=== PATIENT | male | born 1965 | race Caucasian/White ===

== ENCOUNTER 2017-10-24 00:15 | Observation (INO) | payer OTHER ==
[2017-10-24] VITALS (10 sets, daily range): BP systolic 111–195; BP diastolic 86–120; PULSE 72–113; RESP 16–24; TEMP 97.7–98.7; O2SAT 94–97
[~2017-10-24] VITALS: Ht 175.3 cm; Wt 98.0 kg
[2017-10-24] MEDS ORDERED: METOPROLOL TARTRATE 25 MG TAB PO ONE ×2 (00:45→18:00)
--- NOTE | 2017-10-24 00:58 | RADRPT ---
EXAM DATE: 10/24/2017 12:51 AM EDT AGE/SEX: 52 years / Male INDICATIONS: Cough and shortness of breath. CLINICAL DATA: This is the patient's initial encounter. Patient reports that signs and symptoms have been present for 1 day and indicates a pain score of 4/10. MEDICAL/SURGICAL HISTORY: None. None. COMPARISON: No prior exams available for comparison. FINDINGS: Mild basilar atelectasis. Heart size enlarged with pacer leads overlying right atrium and right ventr icle. Previous sternotomy. No pneumothorax. CONCLUSION: Minimal basilar atelectasis. Pacer leads overlying right atrium and right ventricle. Electronically signed by: Twan Rogers MD 10/24/2017 12:57 AM EDT
[2017-10-24 01:05] LABS: BASOPHIL # 0.1 TH/MM3 (0-0.2); BASOPHIL % 1.5 % (0.0-2.0); EOSINOPHIL # 0.4 TH/MM3 (0-0.4); EOSINOPHIL % 4.2 % (0.0-4.0); HEMATOCRIT 42.6 % (39.0-51.0); HEMOGLOBIN 15.5 GM/DL (13.0-17.0); LYMPH % 25.3 % (9.0-44.0); LYMPHOCYTE # 2.5 TH/MM3 (1.0-4.8); MEAN CELL VOLUME 93.4 FL (80.0-100.0); MEAN CORPUSCULAR HEMOGLOBIN 34.1 PG (27.0-34.0); MEAN PLATELET VOLUME 8.2 FL (7.0-11.0); MONO % 8.8 % (0.0-8.0); MONOCYTE # 0.9 TH/MM3 (0-0.9); NEUT % 60.2 % (16.0-70.0); PLATELET COUNT 350 TH/MM3 (150-450); RED BLOOD COUNT 4.56 MIL/MM3 (4.50-5.90); RED CELL DISTRIBUTION WIDTH 13.8 % (11.6-17.2); WHITE BLOOD COUNT 9.9 TH/MM3 (4.0-11.0)
[2017-10-24 01:09] LABS: MEAN CORPUSCULAR HGB CONC 36.4 % (32.0-36.0)
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
[2017-10-24] MEDS ORDERED: MORPHINE SULFATE 4 MG/ML INJ IV PUSH ONE (01:15)
[2017-10-24] MEDS ORDERED: NITROGLYCERIN 2% OINT 1 GM PACKET TOPICAL ONE (01:15)
[2017-10-24] MEDS ORDERED: SODIUM CHLORID 0.9% 500 ML INJ 500 ML IV ONE (01:15)
[2017-10-24 01:16] LABS: ALBUMIN 4.3 GM/DL (3.4-5.0); ALT (GPT) 30 U/L (12-78); AST (GOT) 17 U/L (15-37); BICARBONATE 24.5 MEQ/L (21.0-32.0); BLOOD UREA NITROGEN 6 MG/DL (7-18); CALCIUM 8.4 MG/DL (8.5-10.1); CHLORIDE 107 MEQ/L (98-107); CREATININE 1.28 MG/DL (0.60-1.30); GLOMERULAR FILTRATION RATE 59 ML/MIN (>89); GLUCOSE,RANDOM 111 MG/DL (74-106); SODIUM (NA) 143 MEQ/L (136-145)
[2017-10-24 01:20] LABS: ALKALINE PHOSPHATASE 84 U/L (45-117); TOTAL BILIRUBIN ADULT 0.6 MG/DL (0.2-1.0); TROPONIN I 0.06 NG/ML (0.02-0.05)
[2017-10-24] MEDS: SODIUM CHLOR 0.9% 1000 ML INJ 1,000 ML IV SCH ×3 (02:22→22:56)
[2017-10-24] MEDS ORDERED: IOHEXOL 350 MG/ML 50 ML BTL (for Cath Lab) OTHER ONE (02:25)
[2017-10-24] MEDS ORDERED: IOHEXOL 350 MG/ML 100 ML BTL (for Cath Lab) OTHER ONE (02:25)
[2017-10-24] MEDS ORDERED: SODIUM CHLORIDE 0.9% FLUSH 10 ML FLUSH IV FLUSH PRN (02:30)
--- NOTE | 2017-10-24 03:36 | HHI.HP ---
[facility] Noé Shah DO Admission Diagnosis cp Diagnoses: Travel History International Travel<30 Days: No Contact w/Intl Traveler <30 Da: No Traveled to Known Affected Are: No History of Present Illness 52-year-old male with a past medical history significant for coronary artery disease, hypertension, hyperlipidemia and bipolar/schizophrenia presents to the emergency department for the evaluation of chest pain. The patient states that "his heart hurts." He complains of left-sided chest pain that he describes as a squeezing. He states the pain started sometime last night although cannot specify exactly when. He reports drinking alcohol last night. He endorses accompanying shortness of breath. Denies abdominal pain. No nausea/vomiting/ diarrhea. No lateralizing signs/symptoms. No fevers/chills. Review of Systems Except as stated in HPI: all other systems reviewed are Neg Past Family Social History Past Medical History Coronary artery disease Hypertension Hyperlipidemia Bipolar disorder Schizophrenia Past Surgical History Multiple cardiac catheterizations with stent placement CABG 3 Pacemaker placement Appendectomy Reported Medications Reported Meds & Active Scripts Active Active Prescriptions or Reported Medications Unobtainable Allergies: Coded Allergies: No Known Allergies (Verified Allergy, Unknown, 10/24/17) Family History Mother with coronary artery disease Social History Smokes approximately 4-5 cigarettes daily. Occasional alcohol. Denies illicit drugs. Physical Exam Vital Signs Vital Signs Date Time Temp Pulse Resp B/P (MAP) Pulse Ox O2 Delivery O2 Flow Rate FiO2 10/24/17 00:29 113 18 129/93 (105) 96 Room Air 10/24/17 00:29 96 Room Air 10/24/17 00:24 109 22 95 Physical Exam GENERAL: Obese, male lying in bed SKIN: No rashes, ecchymoses or lesions. Cool and dry. HEAD: Atraumatic. Normocephalic. No temporal or scalp tenderness. EYES: Pupils equal round and reactive. Extraocular motions intact. No scleral icterus. No injection or drainage. ENT: Nose without bleeding, purulent drainage or septal hematoma. Throat without erythema, tonsillar hypertrophy or exudate. Uvula midline. Airway patent. NECK: Trachea midline. No JVD or lymphadenopathy. Supple, nontender, no meningeal signs. CARDIOVASCULAR: Regular rate and rhythm without murmurs, gallops, or rubs. RESPIRATORY: Clear to auscultation. Breath sounds equal bilaterally. No wheezes , rales, or rhonchi. GASTROINTESTINAL: Abdomen soft, non-tender, nondistended. No hepato-splenomegaly , or palpable masses. No guarding. MUSCULOSKELETAL: Extremities without clubbing, cyanosis, or edema. No joint tenderness, effusion, or edema noted. No calf tenderness. NEUROLOGICAL: Awake and alert. Cranial nerves II through XII intact. Motor and sensory grossly within normal limits. Normal speech. Laboratory Laboratory Tests Test 10/24/17 00:45 White Blood Count 9.9 Red Blood Count 4.56 Hemoglobin 15.5 Hematocrit 42.6 Mean Corpuscular Volume 93.4 Mean Corpuscular Hemoglobin 34.1 Mean Corpuscular Hemoglobin Concent 36.4 Red Cell Distribution Width 13.8 Platelet Count 350 Mean Platelet Volume 8.2 Neutrophils (%) (Auto) 60.2 Lymphocytes (%) (Auto) 25.3 Monocytes (%) (Auto) 8.8 Eosinophils (%) (Auto) 4.2 Basophils (%) (Auto) 1.5 Neutrophils # (Auto) 6.0 Lymphocytes # (Auto) 2.5 Monocytes # (Auto) 0.9 Eosinophils # (Auto) 0.4 Basophils # (Auto) 0.1 CBC Comment AUTO DIFF Differential Comment AUTO DIFF CONFIRMED Platelet Estimate NORMAL Platelet Morphology Comment NORMAL Red Cell Morphology Comment NORMAL Blood Urea Nitrogen 6 Creatinine 1.28 Random Glucose 111 Total Protein 8.0 Albumin 4.3 Calcium Level 8.4 Alkaline Phosphatase 84 Aspartate Amino Transf (AST/SGOT) 17 Alanine Aminotransferase (ALT/SGPT) 30 Total Bilirubin 0.6 Sodium Level 143 Potassium Level 3.7 Chloride Level 107 Carbon Dioxide Level 24.5 Anion Gap 12 Estimat Glomerular Filtration Rate 59 Troponin I 0.06 Lipase 128 Result Diagram: 10/24/174410/24/1744 Caprini VTE Risk Assessment Caprini VTE Risk Assessment: No/Low Risk (score <= 1) Caprini Risk Assessment Model Point Value = 1 Point Value = 2 Point Value = 3 Point Value = 5 Age 41-60 Minor surgery BMI > 25 kg/m2 Swollen legs Varicose veins or History of unexplained or recurrent spontaneous Oral contraceptives or hormone replacement Sepsis (< 1 month) Serious lung disease, including pneumonia (< 1 month) Abnormal pulmonary function Acute myocardial infarction Congestive heart failure (< 1 month) History of inflammatory bowel disease Medical patient at bed rest Age 61-74 Arthroscopic surgery Major open surgery (> 45 min) Laparoscopic surgery (> 45 min) Malignancy Confined to bed (> 72 hours) Immobilizing plaster cast Central venous access Age >= 75 History of VTE Family history of VTE Factor V Leiden Prothrombin [id number] Lupus anticoagulant Anticardiolipin antibodies Elevated serum homocysteine Heparin-induced thrombocytopenia Other congenital or acquired thrombophilia Stroke (< 1 month) Elective arthroplasty Hip, pelvis, or leg fracture Acute spinal cord injury (< 1 month) Prophylaxis Regimen Total Risk Factor Score Risk Level Prophylaxis Regimen 0-1 Low Early ambulation 2 Moderate Order ONE of the following: *Sequential Compression Device (SCD) *Heparin 5000 units SQ BID 3-4 Higher Order ONE of the following medications: *Heparin 5000 units SQ TID *Enoxaparin/Lovenox 40 mg SQ daily (WT < 150 kg, CrCl > 30 mL/min) *Enoxaparin/Lovenox 30 mg SQ daily (WT < 150 kg, CrCl > 10-29 mL/min) *Enoxaparin/Lovenox 30 mg SQ BID (WT < 150 kg, CrCl > 30 mL/min) AND/OR *Sequential Compression Device (SCD) 5 or more Highest Order ONE of the following medications: *Heparin 5000 units SQ TID (Preferred with Epidurals) *Enoxaparin/Lovenox 40 mg SQ daily (WT < 150 kg, CrCl > 30 mL/min) *Enoxaparin/Lovenox 30 mg SQ daily (WT < 150 kg, CrCl > 10-29 mL/min) *Enoxaparin/Lovenox 30 mg SQ BID (WT < 150 kg, CrCl > 30 mL/min) AND *Sequential Compression Device (SCD) Assessment and Plan Assessment and Plan Assessment/plan: 1. Chest pain Initial troponin 0.[address] segment elevation or depression, personally reviewed ACS rule out pending; serial troponins/EKGs Nitro Morphine Aspirin 2. CAD/hypertension/hyperlipidemia Continue home medications once reconciled 3. Bipolar disorder/schizophrenia Continue home medications FEN N.p.o. Electrolytes: Monitor and replete as needed NS at 1 25 cc/hour Naomi Cleary MD Oct 24, 2017 03:36
[2017-10-24] MEDS: HEPARIN SODIUM - SQ 10,000 UNITS/ML VIAL SQ SCH ×2 (05:32→10:30)
[2017-10-24] MEDS: MORPHINE SULFATE 4 MG/ML INJ IV PUSH PRN ×4 (05:33→18:34)
[2017-10-24 08:01] LABS: TROPONIN I 0.06 NG/ML (0.02-0.05)
[2017-10-24] MEDS ORDERED: ASPIRIN 325 MG TAB PO SCH (09:00)
[2017-10-24] MEDS ORDERED: HEPARIN-D5W 25,000 U/250 ML 250 ML IV PRN (09:15)
[2017-10-24] MEDS: SODIUM CHLORIDE 0.9% FLUSH 10 ML FLUSH IV FLUSH SCH ×2 (09:22→19:46)
[2017-10-24] MEDS: ENOXAPARIN SODIUM 80 MG/0.8 ML SYRINGE SQ SCH ×2 (09:23→18:15)
[2017-10-24 10:27] LABS: HEMATOCRIT 43.8 % (39.0-51.0); HEMOGLOBIN 15.4 GM/DL (13.0-17.0); MEAN CELL VOLUME 94.6 FL (80.0-100.0); MEAN CORPUSCULAR HEMOGLOBIN 33.4 PG (27.0-34.0); MEAN CORPUSCULAR HGB CONC 35.3 % (32.0-36.0); PLATELET COUNT 334 TH/MM3 (150-450); RED BLOOD COUNT 4.63 MIL/MM3 (4.50-5.90); RED CELL DISTRIBUTION WIDTH 13.9 % (11.6-17.2); WHITE BLOOD COUNT 9.4 TH/MM3 (4.0-11.0)
[2017-10-24 10:38] LABS: INTERNATIONAL NORMALIZED RATIO 1.1 RATIO; PROTHROMBIN TIME - PATIENT 10.9 SEC (9.8-11.6)
--- NOTE | 2017-10-24 13:10 | MB ---
cc: Devaughn Arevalo MD DATE: 10/24/2017 INDICATION: Unstable angina. HISTORY OF PRESENT ILLNESS: This is a 52-year-old gentleman who has past medical history of known coronary artery disease with prior bypass surgery back in 2009. In addition, recent percutaneous coronary intervention just 2 months ago. Also, has a history of hypertension, hyperlipidemia. The patient has established with Dr. Ogden in the outpatient setting. The patient has symptoms of new onset chest pain. He describes it as a substernal chest pain, squeezing in the middle of his chest, radiating towards the left side, associated with diaphoresis and nausea and vomiting. He also reports shortness of breath. He states that the symptoms are worse with activity, although they have occurred at rest. He is currently chest pain free. Initial troponin was intermediate range. Electrocardiogram showed some nonspecific ST abnormalities inferiorly. The patient is concerned about recurrent symptoms, which are similar to his prior angina consistent with his percutaneous intervention and bypass surgery. PAST MEDICAL HISTORY: Coronary artery disease with bypass and prior percutaneous intervention, hypertension, hyperlipidemia, bipolar disorder, schizophrenia. He has coronary bypass surgery x3. He also has permanent pacemaker placement, appendectomy. FAMILY HISTORY: Denies family history of early coronary artery disease or sudden cardiac . SOCIAL HISTORY: Reports tobacco abuse, smokes about 4-5 cigarettes a day. Occasional alcohol use. Denies any drug use. ALLERGIES: NO KNOWN DRUG ALLERGIES. REVIEW OF SYSTEMS: A 12-point review of systems was performed and negative unless otherwise noted in the history of present illness. PHYSICAL EXAMINATION: VITAL SIGNS: Pulse 81, blood pressure is 159/96 mmHg. GENERAL: Alert and oriented x3, in no acute distress. HEENT: Shows pupils are reactive to light and accommodation. Extraocular movements intact. NECK: No elevation of jugular venous distention. No thyromegaly. No lymphadenopathy, no carotid bruits. LUNGS: Clear to auscultation bilaterally. CARDIOVASCULAR: Reveals a regular rate and rhythm without murmurs, rubs or gallops. ABDOMEN: Nontender, nondistended with good bowel sounds. No hepatosplenomegaly. EXTREMITIES: Show no clubbing, cyanosis or edema. Good peripheral pulses. NEUROLOGIC: Cranial nerves intact. Motor and sensory grossly intact. LABORATORY DATA: WBC 9.4, hemoglobin 15.4, platelet count is 334. INR is 1.1. Sodium 143, potassium 3.7, BUN 6, creatinine is 1.28. Troponin 0.06 x2. Total creatinine kinase is elevated at 410. Electrocardiogram shows nonspecific ST abnormality inferiorly in leads II, III, aVF. ASSESSMENT: 1. Unstable angina. 2. History of coronary artery disease with prior percutaneous intervention and coronary artery bypass surgery, hypertension, hyperlipidemia. PLAN: The patient's symptoms are suggestive and recurrent similar to his prior episodes of angina. The patient also has intermediate troponin and electrocardiogram with subtle ischemic changes. We will get a 2-D echocardiogram. I am going to initiate heparin drip, in addition to guideline directed medical therapy with nitrate, aspirin, beta norma. We will make him n.p.o. after midnight. Anticipate cardiac catheterization from a right common femoral approach tomorrow morning. Devaughn Arevalo MD NIVIA/TL , 12:40 PM , 01:08 PM
[2017-10-24 13:45] LABS: TROPONIN I 0.06 NG/ML (0.02-0.05)
[2017-10-24] MEDS ORDERED: PARO30TA2 PO (14:47)
[2017-10-24] MEDS ORDERED: SPIR25TA PO (14:47)
[2017-10-24] MEDS ORDERED: LOSA100T PO (14:47)
[2017-10-24] MEDS ORDERED: CLOP75TA PO (14:47)
[2017-10-24] MEDS ORDERED: NITR.3 SL (14:47)
[2017-10-24] MEDS ORDERED: QUET-88 PO (14:47)
[2017-10-24] MEDS ORDERED: TRAZ100T10 PO (14:47)
[2017-10-24] MEDS ORDERED: RANI150T PO (14:47)
[2017-10-24] MEDS ORDERED: ATOR40TA16 PO (14:47)
[2017-10-24] MEDS ORDERED: BUPR150T3 PO (14:47)
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
[2017-10-24] MEDS: LOSARTAN 50 MG TAB PO SCH (17:36)
--- NOTE | 2017-10-24 18:25 | EKG ---
Date Performed: 10/23/2017 Time Performed: 23:28:41 PTAGE: 52 years EKG: SINUS TACHYCARDIA WITH FIRST DEGREE AV BLOCK INFERIOR MYOCARDIAL INFARCTION ABNORMAL ECG NO PREVIOUS TRACING DOCTOR: Mihcelle Sotelo Interpretating Date/Time 10/24/2017 18:23:38
--- NOTE | 2017-10-24 18:27 | EKG ---
Date Performed: 10/24/2017 Time Performed: 05:00:28 PTAGE: 52 years EKG: Normal Sinus rhythm Inferior wall infarct- of undeterminate age. Possibly acute. When compared to previous tracing, ther e has been no significant Serial change. ABNORMAL RHYTHM ECG PREVIOUS TRACING : 10/23/2017 23.28 DOCTOR: David Florentino Interpretating Date/Time 10/24/2017 18:25:28
[2017-10-24] MEDS: QUEtiapine FUMARATE 200 MG TAB PO SCH (19:47)
[2017-10-24] MEDS: FAMOTIDINE 20 MG TAB PO SCH (19:47)
[2017-10-24] MEDS: PARoxetine HCL 20 MG TAB PO SCH (19:47)
[2017-10-24] MEDS: METOPROLOL TARTRATE 25 MG TAB PO SCH (19:47)
[2017-10-24] MEDS ORDERED: LACTATED RINGER'S 1000 ML IV PRN (22:30)
[2017-10-24] MEDS ORDERED: POVIDONE IODINE 5% (ANTISEPSIS KIT) 4 APPLICATIONS EACH NARE PRN (22:30)
[2017-10-24] MEDS ORDERED: METOPROLOL TARTRATE 25 MG TAB PO PRN (22:30)
[2017-10-24] MEDS ORDERED: SODIUM CHLORID 0.9% 500 ML IV PRN (22:30)
[2017-10-24] MEDS ORDERED: CHLORHEXIDINE GLUCONATE 2 % 1 PACK (2 CLOTHS) TOPICAL PRN (22:30)
[2017-10-25] VITALS (11 sets, daily range): BP systolic 103–148; BP diastolic 67–98; PULSE 59–81; RESP 16–18; TEMP 97.6–98.2; O2SAT 94–100
[2017-10-25] MEDS: ENOXAPARIN SODIUM 80 MG/0.8 ML SYRINGE SQ SCH (06:15)
--- NOTE | 2017-10-25 07:41 | HHI.PR ---
Subjective Remarks Follow-up on patient with chest pain. Patient seen and examined. Patient is complaining of chest pain that began at 6am. He denies any nausea, vomiting or diaphoresis. He denies any dizziness, lightheadedness or palpitations. He denies any shortness of breath. Objective Vitals Vital Signs Date Time Temp Pulse Resp B/P (MAP) Pulse Ox O2 Delivery O2 Flow Rate FiO2 10/25/17 07:15 97.6 63 18 142/94 (110) 98 10/25/17 03:34 97.7 72 16 128/85 (99) 97 10/24/17 23:00 72 10/24/17 22:54 97.7 79 16 111/86 (94) 96 10/24/17 19:40 98.5 83 16 195/110 (138) 97 10/24/17 17:29 77 10/24/17 17:21 98.7 80 18 191/117 (141) 94 10/24/17 14:28 182/120 (140) Automatic Cuff 10/24/17 14:08 97.7 81 24 164/103 (123) 96 10/24/17 09:17 81 17 159/96 (117) 97 Room Air I/O 10/24/17 10/24/17 10/24/17 10/25/17 10/25/17 10/25/17 07:00 15:00 23:00 07:00 15:00 23:00 Intake Total 500 ml Balance 500 ml Intake IV Total 500 ml # Voids 1 Result Diagram: 10/24/17 1015 10/24/17 0045 Imaging Last Impressions Chest X-Ray 10/24/17 0027 Signed Impressions: CONCLUSION: Minimal basilar atelectasis. Pacer leads overlying right atrium and right ventr icle. Objective Remarks GENERAL: WDWN obese male patient, INAD. Asleep but easily awakens to voice. SKIN: No rashes, ecchymoses or lesions. Cool and dry. HEAD: Atraumatic. Normocephalic. No temporal or scalp tenderness. EYES: Pupils equal round and reactive. Extraocular motions intact. No scleral icterus. No injection or drainage. ENT: Nose without bleeding or purulent drainage. Airway patent. MMM. NECK: Trachea midline. CARDIOVASCULAR: Regular rate and rhythm without murmurs, gallops, or rubs. RESPIRATORY: Clear to auscultation. Breath sounds equal bilaterally. No wheezes , rales, or rhonchi. GASTROINTESTINAL: Abdomen soft, non-tender, nondistended. No guarding. MUSCULOSKELETAL: Extremities without clubbing, cyanosis, or edema. No calf tenderness. NEUROLOGICAL: Awake and alert. Cranial nerves II through XII grossly intact. Motor and sensory grossly within normal limits. Nonfocal. Normal speech. PSYCHIATRIC: Appropriate mood and affect. Normal judgment and insight. Procedures None A/P Assessment and Plan 52-year-old male with a past medical history significant for coronary artery disease, hypertension, hyperlipidemia and bipolar/schizophrenia presents to the emergency department for the evaluation of chest pain. Chest pain Elevated troponin EKG with non specific ST abnormalities Hx of previous CABG 2009 and stent implantations x 12, last one in August of this year in [facility] -Cardiology following, patient is NPO for cardiac catheterization later this morning -Continue on morphine as needed chest pain -Continue to monitor on cardiac telemetry -Continue on therapeutic Lovenox -ASA 81mg and Lipitor 40mg daily -continue on BB Hypertension Dyslipidemia -Continue patient on home dose of losartan 100 mg daily, spironolactone 25 mg daily and Lipitor 40 mg daily -continue on Lopressor started this admission -Clonidine prn with parameters -Continue to monitor BP and adjust treatment accordingly Bipolar disorder/schizophrenia, stable -Continue on home medications DVT prophylaxis -patient is on therapeutic Lovenox Discharge Planning Not ready for discharge. Discharge pending cardiology clearance. Eleanor Dubose Oct 25, 2017 07:41
[2017-10-25] MEDS: SODIUM CHLORIDE 0.9% FLUSH 10 ML FLUSH IV FLUSH SCH ×2 (07:42→20:15)
[2017-10-25] MEDS: METOPROLOL TARTRATE 25 MG TAB PO SCH ×2 (07:43→20:15)
[2017-10-25] MEDS: ATORVASTATIN 40 MG TAB PO SCH (07:43)
[2017-10-25] MEDS: LOSARTAN 50 MG TAB PO SCH (07:43)
[2017-10-25] MEDS: ASPIRIN EC 81 MG TABEC PO SCH (07:43)
[2017-10-25] MEDS: buPROPion HCL 150 MG SUSTAINED RELEASE TAB PO SCH (07:43)
[2017-10-25] MEDS: FAMOTIDINE 20 MG TAB PO SCH ×2 (07:43→20:16)
[2017-10-25] MEDS: QUEtiapine FUMARATE 200 MG TAB PO SCH ×2 (07:44→21:31)
[2017-10-25] MEDS: SPIRONOLACTONE 25 MG TAB PO SCH (07:44)
[2017-10-25] MEDS: MORPHINE SULFATE 4 MG/ML INJ IV PUSH PRN ×3 (07:44→20:18)
[2017-10-25] MEDS ORDERED: HEPARIN-NS/PF INJ 500 ML ONE (08:15)
[2017-10-25] MEDS ORDERED: MIDAZOLAM HCL 2 MG/2 ML VIAL ONE (08:15)
--- NOTE | 2017-10-25 09:29 | CATHPROC ---
MyPermissions HIS Report Study Information Study Number Admission Scheduled Start Study Start [id number] Oct 24 2017 2:24AM 10/25/2017 Oct 25 2017 8:12AM [place] [facility] Cardiac Catheterization Admit Source Facility Department Emergency department [facility] - [employer] [facility] Counselor Physician and Clinical Staff Initial Devaughn Morales Butadiene Converter Helpersuzie Redd RN, Reg Recorder Meera Jade ,RT(R) Scrub Sarah Rivera,LITERACY COACH TECH2 Procedures Performed Procedure Location (Site) Vessel Name Angiogram LV LV Ventricle Coronary Angiograms LCA Left Coronary Coronary Angiograms RCA Right Coronary Coronary Angiograms SVG-DIAG Left Coronary Coronary Angiograms WOODRUFF WOODRUFF L Heart Cath Wire insertion Fem Art (right) Femoral Art Equipment Time Pit Shoveler Description Size Mfg Part Number Used/Scraped TRANSDUCER, TRUWAVE [id number] 08:13 Frilp MALDONADO * Used W/STOCKCOCK *[id number] 09:11 [employer] VASCADE, FR5 CLOSURE SYSTEM FR 5 Used *[id number] [id number] *[id number] [id number] *[id number] [id number] *[id number] 08:13 [employer] BLANKET,WARM AIR CCL * Used *[id number] 08:13 [employer] PACK, CCL CUSTOM * Used *[id number] 08:13 [employer] PACER PEN, SKIN DUAL W/ RULER * Used *[id number] PIG ANG 145 DXTERITY [id number] 09:03 [employer] FR 5 Used CATHETER *[id number] 08:13 [employer] MEDICAL WIRE, 3MMJ .035 180CM 180CM Used *[id number] 08:53 [employer] MEDICAL WIRE, EXCHANGE 260CM 3MMJ 260CM Used *[id number] 08:13 NAMIC MANIFOLD, 4 PORT * Used *[id number] TUBING, PRESSURE INJECTION [id number] 09:04 NAMIC 72" Used 72" *[id number] 09:07 [employer] OMNIPAQUE, 350 MG, 150ML 150ML [id number] Used 08:13 [employer] OMNIPAQUE, 350 MG, 150ML 150ML [id number] Used 09:06 [employer] OMNIPAQUE, 350 MG, 50ML 50ML [id number] Used [id number] 08:13 TERUMO MEDICAL SHEATH, FR5 TERUMO (10CM) FR 5 Used *[id number] Equipment Model, Serial, Lot Number and Expiration Data Description Model Number Serial Number Lot Number Expiration Date KIRBY VELARDE 145 DXTERITY CATHETER [id number] 06-26-2019 History: Current Medications Medication Dosage/Unit Route Frequency Last Date/Time Taken Statins (any) Beta John ASA History: Allergies Allergy Reaction No Known Allergies History: Risk Factors Family History of Hypertension Dyslipidemia Previous OH Previous Heart Failure Premature CAD Yes Yes Yes Yes Yes Prior Valve Prior PCI Prior CABG Prior CABGDate Surgery No Yes Yes 05/20/2009 Cerebrovascular Peripheral Artery Chronic Lung On Dialysis Diabetes Disease Disease Disease No No No No No History: Symptoms/Diagnosis Selection Items Chest pain History: CV Disease Selection Items OH History: Stress Tests Stress or Imaging Studies Performed No History: Other Disease Selection Items HTN History: Other Current Smoker Packs a Day Years Used Pack Years Yes 1 34 34 Labs Hgb (g/dl) Hct (%) WBC (l/cumm) Platelets (thousands) 11.60-17.00 35.00-51.00 4.00-11.00 150.00-450.00 15.4 43.8 9.4 334 Glucose (mg/dl) BUN (mg/dl) Creatinine (mg/dl) BUN:Creatinine (1:x) 74.00-106.00 7.00-18.00 0.50-1.30 10.00-20.00 111 6 1.2 5 Na (meq/l) K (meq/l) 136.00-145.00 3.50-5.10 143 3.7 INR (PTT:PT) 0.90-1.10 1.1 Troponin I (ng/ml) CPK (u/l) CPK-MB (ng/ML) 0.02-0.05 26.00-308.00 0.50-3.60 0.06 374 3.2 Medication Medication Total Dose (Bolus/Oral) Medication Total Dosage/Unit 1% XYLOCAINE 15 mL FENTANYL 50 mcg VERSED 2 mg Medications (Bolus/Oral) Medication Time Given Dosage/Unit Administered By Reason VERSED 10/25/2017 8:45:16 AM 2 mg Reg Redd RN 2 mg VERSED given in lab by Reg Redd RN in Left Hand via Peripheral IV. Ordered by Devaughn Arevalo . FENTANYL 10/25/2017 8:46:36 AM 50 mcg Reg Redd RN 50 mcg FENTANYL given in lab by Reg Redd RN in Left Hand via Peripheral IV. Ordered by Jay Arevalo 1% XYLOCAINE 10/25/2017 8:51:41 AM 15 mL Devaughn Arevalo 15 mL 1% XYLOCAINE given in lab by Devaughn Arevalo in Right Groin via Subcutaneous. Ordered by Devaughn Arevalo. Medication (Drip) Medication Time Given Dosage/Unit Concentration/Unit Diluent (ml) Solution IV Solutions 10/25/2017 8:13:23 AM 50 mL (IV) NaCl .9 Patient arrived on IV Solutions in Left Hand via Peripheral IV. Pump/Drip Flow using NaCl .9. Initial Case Assessment Cardiovascular HR Rhythm NIBP 80 sr 151/100 Edema Present Skin color Skin None Normal Warm Dry Circulatory - Right Pulses Dorsalis Pedis Femoral 2 2 Scale (0,1,2,3,4,d) Circulatory - Left Pulses Dorsalis Pedis Femoral 2 2 Scale (0,1,2,3,4,d) Circulatory - Lower Extremities Color Lower Right Color Lower Left Normal Normal Neurological State Oriented to time-place- Alert Moves all extremities person Respiration - General Respiration Rate SpO2 (%) (B/min) 10 99 Final Case Assessment Cardiovascular HR Rhythm NIBP 80 sr 151/100 Edema Present Skin color Skin None Normal Warm Dry Circulatory - Right Pulses Dorsalis Pedis Femoral 2 2 Scale (0,1,2,3,4,d) Circulatory - Left Pulses Dorsalis Pedis Femoral 2 2 Scale (0,1,2,3,4,d) Circulatory - Lower Extremities Color Lower Right Color Lower Left Normal Normal Neurological State Oriented to time-place- Alert Moves all extremities person Respiration - General Respiration Rate SpO2 (%) (B/min) 10 99 Chronological Log Time Study Chronological Log 8:10:01 Patient arrived via Bed. 8:10:06 Patient Name, D.O.B, / Armband Verified By R.N. 8:12:10 Consent signed by the physician and the patient and verified by the [employer] [facility] staff. 8:12:11 Pre-op and post- op instructions given; patient acknowledges understanding of instructions. 8:12:12 Verbal Stimulation=2 Physical Stimulation=2 Airway=2 Respiration=2 TOTAL=8. (0=absent, 1=li mited, 2=present) 8:13:09 Patient has been NPO for More than 6Hrs. 8:13:09 Skin Breakdown- none per patient 8:13:11 Patient Warmer Placed on the Table. 8:13:17 Gill Prominences Protected 8:13:23 A # 20 IV was noted in the Hand (left). Grade = 0 8:13:23 Patient arrived on IV Solutions in Left Hand via Peripheral IV. Pump/Drip Flow using NaCl . 9. Assessment: Initial Case, HR=80 BPM, Rhythm=sr, UCVM=824/100 mmhg, Edema=None, Color=Normal, Ski n = Warm, Dry Right Pulses: [place] Ped=2, Femoral=2 Left Pulses: [place] Ped=2, Femoral=2 8:13:24 Lower Right Extremities: Color=Normal Lower Left Extremities: Color=Normal Neurological: State=Alert, Ox3, KITCHEN Respiration: Resp=10 B/min, SpO2=99 % 8:13:24 History and physical on the chart or being dictated. Vitals capture started with the following parameters, Patient=Adult, Interval=5 min, Initial Pre rjmht=359 mmHg, 8:13:45 Deflation Rate=5 mmHg, Cuff placed on Left Arm 8:14:23 HR=60 bpm, BRFI=153/100 mmhg, PqE1=579.0 %, Resp=7 B/min, Pain=0, Reji=10, Lara=2 8:17:31 Bilateral groins prepped with 2% chlorhexidine, and draped after a 3 minute waiting time. 8:19:22 HR=67 bpm, PZIW=434/102 mmhg, SpO2=99.0 %, Resp=9 B/min, Pain=0, Reji=10, Lara=2 8:24:23 HR=70 bpm, JLJW=434/106 mmhg, SpO2=97.0 %, Resp=10 B/min, Pain=0, Reji=10, Lara=2 8:25:08 Pressure channel 1 zeroed. 8:25:16 paged 8:29:22 Reference ECG taken 8:29:26 HR=64 bpm, RVSK=093/104 mmhg, SpO2=97.0 %, Resp=8 B/min, Pain=0, Reji=10, Lara=2 8:34:25 HR=61 bpm, APPQ=430/95 mmhg, SpO2=99.0 %, Resp=7 B/min, Pain=0, Reji=10, Lara=2 8:35:36 MD responded 8:39:22 HR=59 bpm, CHZT=530/89 mmhg, SpO2=98.0 %, Resp=12 B/min, Pain=0, Reji=10, Lara=2 8:44:23 HR=60 bpm, UJNF=254/102 mmhg, SpO2=98.0 %, Resp=4 B/min 8:45:16 2 mg VERSED given in lab by Reg Redd RN in Left Hand via Peripheral IV. Ordered by Devaughn Arevalo. 8:45:19 MD arrived. 8:46:36 50 mcg FENTANYL given in lab by Reg Redd RN in Left Hand via Peripheral IV. Ordered by Devaughn Fisher. 8:50:05 HR=60 bpm, WKXM=217/92 mmhg, SpO2=94.0 %, Resp=10 B/min, Pain=0, Reji=10, Lara=2 Time Out. Correct patient, correct procedure, correct physician, labs, allergies, and equipment verified with recyclable materials sorter 8:51:23 team present. Fire risk assesment completed (see hard stop sheet for coding). Time Out Concu rred by MD and individual staff in procedure. 8:51:41 15 mL 1% XYLOCAINE given in lab by Devaughn Arevalo in Right Groin via Subcutaneous. Ordered b y Devaughn Arevalo. 8:52:00 Case Start 8:52:43 Access site was Right Femoral Artery. 8:53:03 A wire was inserted via Fem Art (right). 8:53:07 A SHEATH, FR5 TERUMO (10CM) FR 5 was advanced into the Fem Art (right) using the Percutaneou s technique. A JR 4.0 INFINITI CATHETER FR 5 was advanced over a wire. OMNIPAQUE, 350 MG, 150ML 150ML was use d for 8:54:10 injections. 8:55:00 HR=65 bpm, OODR=819/116 mmhg, SpO2=84.0 %, Resp=8 B/min, Pain=0, Reji=10, Lara=2 8:55:20 The RCA was injected and visualized at various angles. OMNIPAQUE, 350 MG, 150ML 150ML used. Recorded Pressure: Ao, HR=82, Condition=Condition 1 8:55:28 (Aorta) Ao 143/90/112 8:56:04 The SVG-DIAG was injected and visualized at various angles. OMNIPAQUE, 350 MG, 150ML 150ML u sed. 8:59:26 HR=87 bpm, VFRY=273/85 mmhg, SpO2=97.0 %, Resp=16 B/min, Pain=0, Reji=10, Lara=2 After removing the current catheter a STEPHEN INFINITI CATHETER FR 5 was advanced over a WIRE, EXCHA NGE 260CM 8:59:30 3MMJ 260CM. 9:00:23 The WOODRUFF was injected and visualized at various angles. OMNIPAQUE, 350 MG, 150ML 150ML used. 9:00:51 Catheter was removed A JL 4.0 INFINITI CATHETER FR 5 was advanced over a wire. OMNIPAQUE, 350 MG, 150ML 150ML was u sed for 9:01:12 injections. 9:02:11 The LCA was injected and visualized at various angles. OMNIPAQUE, 350 MG, 150ML 150ML use d. After removing the current catheter a PIG ANG 145 DXTERITY CATHETER FR 5 was advanced over a W CARIN, EXCHANGE 9:02:58 260CM 3MMJ 260CM. Recorded Pressure: LV, HR=79, Condition=Condition 1 9:04:40 (Left Ventricle) LV 145/6/12 9:05:00 HR=84 bpm, XSCQ=080/92 mmhg, SpO2=95.0 %, Resp=13 B/min, Pain=0, Reji=10, Lara=2 9:05:51 The LV was injected at 10 cc/sec for a total of 20. OMNIPAQUE, 350 MG, 50ML 50ML used. 9:08:24 Catheter was removed 9:09:26 HR=62 bpm, SUYB=160/87 mmhg, SpO2=98.0 %, Resp=12 B/min, Pain=0, Reji=10, Lara=2 9:09:42 An injection in the Fem Art (right) was made through the SHEATH, FR5 TERUMO (10CM) FR 5. 9:11:56 VASCADE, FR5 CLOSURE SYSTEM FR 5 placement in the Fem Art (right) 9:12:08 Case End (Physician broke scrub) Assessment: Final Case, HR=80 BPM, Rhythm=sr, MMLQ=106/100 mmhg, Edema=None, Color=Normal, Ski n = Warm, Dry Right Pulses: [place] Ped=2, Femoral=2 Left Pulses: [place] Ped=2, Femoral=2 9:12:14 Lower Right Extremities: Color=Normal Lower Left Extremities: Color=Normal Neurological: State=Alert, Ox3, KITCHEN Respiration: Resp=10 B/min, SpO2=99 % 9:12:20 Catheter(s) removed without difficulty 9:12:25 No case complications noted. 9:12:26 Cine recording checked. 9:12:28 Bedside Report will be given. 9:12:32 A Left Heart Cath was performed. 9:14:31 HR=75 bpm, FARR=570/85 mmhg, SpO2=99.0 %, Resp=12 B/min, Pain=0, Reji=10, Lara=2 9:19:28 TIRJ=564/90 mmhg, SpO2=95.0 %, Pain=0, Reji=10, Lara=2 9:21:26 Vitals capture stopped. 9:24:19 Patient moved to [facility] End Study - Contrast Media Used In Study Contrast Total Opened (mL) Total Used (mL) Total Wasted (mL) Omnipaque 110 110 0 End Study - Maximum Contrast Load Max Contrast Load (mL) 408.3 End Study - Radiation Exposure Fluoro Time (minutes) 4.1 End Study - Sheaths Sheaths Pulled By Sheath Hold Time (min) Sarah Rivera End Study - Patient Disposition Complications Transferred To Interventional Outcome No Telemetry Bed No attempt made
[2017-10-25] MEDS ORDERED: RANOLAZINE 500 MG EXTENDED RELEASE TAB PO SCH (09:30)
[2017-10-25] MEDS ORDERED: ISOSORBIDE MONONITRATE 60 MG CR TAB (IMDUR) PO SCH (09:30)
--- NOTE | 2017-10-25 10:25 | MA ---
cc: Devaughn Arevalo MD DATE: 10/25/2017 DATE OF PROCEDURE: 10/25/2012. INDICATION: ST elevation myocardial infarction. PROCEDURES PERFORMED: 1. Fluoroscopy with interpretation. 2. Coronary angiography. 3. Coronary artery bypass graft angiography. 4. Left heart catheterization. 5. Left ventriculography. 6. Ascending aortography. METHOD: Risks, benefits, and alternatives were discussed with the patient. The patient understood and consented to procedure. The patient was taken to the cardiac catheterization lab, placed on the catheterization table. The right groin prepped and draped in sterile fashion. The right groin was anesthetized with 2% lidocaine. Right common femoral artery was cannulated and a 5-Cameroonian, 11 cm sheath was placed without difficulty. LEFT HEART CATHETERIZATION: Intraventricular hemodynamics measured 145/6 mmHg with a left ventricular end-diastolic pressure of 12 mmHg. There is no aortic stenosis by transaortic valvular pullback gradient. LEFT VENTRICULOGRAPHY: Left ventriculography was performed in a right anterior oblique view using a mL contrast injection, good opacification. Left ventricular ejection fraction is estimated visually at 30%. There is severe inferior wall hypokinesis extending out to the inferoapex. CORONARY ANGIOGRAPHY: 1. Left main coronary has mild luminal irregularities and tapers distally. 2. Left anterior descending coronary has 95% stenosis in the proximal segment. In the mid segment at the bifurcation of the small diagonal branch, there are stents present which appear to be occluded. There is also diagonal branch that has stents present, which is subtotally occluded, small caliber size distally. 3. Left circumflex is a large caliber-sized vessel, gives rise to a large first obtuse marginal branch. There is a stent present, which is widely patent. The remainder of the circumflex gives rise to a sinoatrial heidi branch and AV circumflex, which is small caliber. 4. Right coronary has stents present through the entire mid-segment. There is some mild in-stent restenosis about 30% in the mid to distal stent segment of the vessel. The posterior descending and posterolateral branches are all very small caliber size with 95%, stenosis in the mid to distal segment, but about a 1 mm caliber-sized vessel in diameter. CORONARY BYPASS GRAFT ANGIOGRAPHY: 1. Left internal mammary to the left anterior descending coronary artery is widely patent. Left anterior descending is very small caliber size. 2. Saphenous vein graft to the diagonal branch: The graft itself is patent, but just distal to the anastomosis it is subtotally occluded. It does have retrograde filling partially back into the mid-left anterior descending coronary artery, which feeds some septal perforators, but not the LAD. 3. Saphenous vein graft to what I assume to be an obtuse marginal branch appears to be occluded at the aortic anastomosis. ASCENDING AORTOGRAPHY: Ascending aortography was performed in the left anterior oblique using a 40 cc contrast injection. The ascending aorta is mildly dilated. There is no additional bypass grafts visualized outside of the one already selectively engaged. PLAN: There is no easily approachable culprit lesion. The diagonal branch is small caliber size and not approachable percutaneously. Prior stents have severe in-stent re-stenosis now. The LAD territory is small caliber size distally. Circumflex is okay and fed through the [place] circulation and the right has very small branch vessel distal disease not amenable to percutaneous intervention. At this point, I recommend aggressive medical management. We are going to add isosorbide 60 mg twice daily in addition to Ranexa. He is already on beta norma with heart rate of 60 beats per minute. We will confirm that he has a defibrillator in place, although the patient mentioned he thought it was only a pacemaker. He will followup with Dr. Ogden on an outpatient basis. MD NIVIA Davis/SB , 09:26 AM , 10:23 AM
[2017-10-25] MEDS ORDERED: DEFIB EXTERNAL (11:09)
--- NOTE | 2017-10-25 11:12 | PD.CARD.PN ---
Assessment and Plan Assessment and Plan reviewed information from august 2017 admission at [facility] Reviewed [facility] films by Dr. Navas at [facility] He underwent PTCA of mid RCA instent restenosis. huslia diagonal branch was patent then, and is now occluded. echo EF 50% then interrogation of device is PPM, not ICD consider LifeVest and guideline directed medical therapy FU dr. owen. CM consult for meds and lifevest Devaughn Arevalo MD Oct 25, 2017 11:12
[2017-10-25] MEDS ORDERED: NITROGLYCERIN 2% OINT 1 GM PACKET TOP SCH (12:00)
[2017-10-25] MEDS: cloNIDine HCL 0.1 MG TAB PO PRN ×2 (15:53→17:22)
[2017-10-25] MEDS ORDERED: cloNIDine HCL 0.1 MG TAB PO ONE (17:45)
[2017-10-25] MEDS ORDERED: amLODIPine BESYLATE 5 MG TAB PO ONE (18:00)
[2017-10-25] MEDS: PARoxetine HCL 20 MG TAB PO SCH (20:16)
[2017-10-25] MEDS: RANOLAZINE 500 MG EXTENDED RELEASE TAB PO SCH (20:17)
[2017-10-26] VITALS (29 sets, daily range): BP systolic 104–141; BP diastolic 65–92; PULSE 55–83; RESP 16–18; TEMP 97.3–97.8; O2SAT 95–98
[2017-10-26] MEDS: SODIUM CHLORIDE 0.9% FLUSH 10 ML FLUSH IV FLUSH SCH ×2 (09:00→20:43)
[2017-10-26] MEDS: LOSARTAN 50 MG TAB PO SCH (10:08)
[2017-10-26] MEDS: MORPHINE SULFATE 4 MG/ML INJ IV PUSH PRN ×2 (10:11→20:46)
[2017-10-26] MEDS: FAMOTIDINE 20 MG TAB PO SCH ×2 (10:12→20:42)
[2017-10-26] MEDS: ASPIRIN EC 81 MG TABEC PO SCH (10:12)
[2017-10-26] MEDS: CLOPIDOGREL 75 MG TAB PO SCH (10:12)
[2017-10-26] MEDS: amLODIPine BESYLATE 5 MG TAB PO SCH (10:12)
[2017-10-26] MEDS: ATORVASTATIN 40 MG TAB PO SCH (10:12)
[2017-10-26] MEDS: buPROPion HCL 150 MG SUSTAINED RELEASE TAB PO SCH (10:13)
[2017-10-26] MEDS: METOPROLOL TARTRATE 25 MG TAB PO SCH (10:13)
[2017-10-26] MEDS: QUEtiapine FUMARATE 200 MG TAB PO SCH ×2 (10:13→20:42)
[2017-10-26] MEDS: SPIRONOLACTONE 25 MG TAB PO SCH (10:13)
--- NOTE | 2017-10-26 10:31 | HHI.PR ---
Subjective Remarks Follow-up on patient with chest pain, cardiomyopathy. Patient is currently doing well. Has intermittent chest pain. Objective Vitals Vital Signs Date Time Temp Pulse Resp B/P (MAP) Pulse Ox O2 Delivery O2 Flow Rate FiO2 10/26/17 08:14 97.3 81 18 98 141/92 (108) 10/26/17 06:00 61 10/26/17 05:00 62 10/26/17 04:00 64 10/26/17 03:12 97.8 68 18 104/65 (78) 95 10/26/17 03:00 70 10/26/17 02:00 62 10/26/17 01:00 62 10/26/17 00:00 60 10/25/17 23:48 98.1 60 18 103/67 (79) 94 10/25/17 23:00 66 10/25/17 22:00 60 10/25/17 21:00 64 10/25/17 20:25 18 10/25/17 20:00 70 10/25/17 19:55 98.2 74 18 142/86 (104) 99 10/25/17 19:00 81 10/25/17 16:15 98.2 63 16 148/98 (115) 100 10/25/17 15:00 59 I/O 10/25/17 10/25/17 10/25/17 10/26/17 10/26/17 10/26/17 07:00 15:00 23:00 07:00 15:00 23:00 Intake Total 480 ml Balance 480 ml Intake Oral 480 ml # Voids 2 Result Diagram: 10/24/17 1015 10/24/17 0045 Imaging Last Impressions Chest X-Ray 10/24/17 0027 Signed Impressions: CONCLUSION: Minimal basilar atelectasis. Pacer leads overlying right atrium and right ventr icle. Objective Remarks GENERAL: Alert, oriented 3, NAD. SKIN: Warm and dry. HEAD: Normocephalic. EYES: No scleral icterus. No injection or drainage. NECK: Supple, trachea midline. No JVD or lymphadenopathy. CARDIOVASCULAR: Regular rate and rhythm without murmurs, gallops, or rubs. RESPIRATORY: Breath sounds equal bilaterally. No accessory muscle use. GASTROINTESTINAL: Abdomen soft, non-tender, nondistended. MUSCULOSKELETAL: No cyanosis, or edema. BACK: Nontender without obvious deformity. No CVA tenderness. Procedures None A/P Assessment and Plan 52-year-old male with a past medical history significant for coronary artery disease, hypertension, hyperlipidemia and bipolar/schizophrenia presents to the emergency department for the evaluation of chest pain. NSTEMI Cardiomyopathy Hx of previous CABG 2009 and stent implantations x 12, last one in August of this year in [facility] -Cardiology following, Patient underwent cath - shows in-stent stenosis of prior stents. EF 30% on cath. -Continue on Ranexa, Imdur for chest pain -Continue to monitor on cardiac telemetry -ASA 81mg, Plavix 75mg and Lipitor 40mg daily -Cardiology changed BB to Sotalol 80mg Q12hrs. Hypertension Dyslipidemia -Continue patient on home dose of losartan 100 mg daily, spironolactone 25 mg daily and Lipitor 40 mg daily Bipolar disorder/schizophrenia, stable -Continue on home medications Full code. Ambulation. Adam Maldonado DO Oct 26, 2017 10:31 am
--- NOTE | 2017-10-26 12:07 | PD.CARD.PN ---
Subjective Subjective Remarks patient seen and examined. Still with intermittent chest pains. Refuses imdur due to severe headaches. Started Amlodipine 5mg daily yesterday. Tele with multiple short runs up to 9 beats of IVCD. Seen by Db today who is processing order for Stitch. Will likely be available saturday due to Medicaid. Objective Medications Current Medications Medications (Trade) Dose Ordered Sig/Pallavi Route Start Time Stop Time Status Last Admin (NS Flush) 2 ml BID IV FLUSH 10/24/17 09:00 10/25/17 20:15 (NS Flush) 2 ml UNSCH PRN IV FLUSH 10/24/17 02:30 (Morphine Inj) 2 mg Q3H PRN IV PUSH 10/24/17 02:30 10/26/17 10:11 (Ecotrin Ec) 81 mg DAILY PO 10/25/17 09:00 10/26/17 10:12 (Lipitor) 40 mg DAILY PO 10/25/17 09:00 10/26/17 10:12 (Wellbutrin Sr) 150 mg DAILY PO 10/25/17 09:00 10/26/17 10:13 (Cozaar) 100 mg DAILY PO 10/24/17 18:00 10/26/17 10:08 (Aldactone) 25 mg DAILY PO 10/25/17 09:00 10/26/17 10:13 (Paxil) 30 mg HS PO 10/24/17 21:00 10/25/17 20:16 (SEROquel) 200 mg BID PO 10/24/17 21:00 10/26/17 10:13 (Pepcid) 20 mg BID PO 10/24/17 21:00 10/26/17 10:12 (Catapres) 0.1 mg Q6H PRN PO 10/24/17 16:15 10/25/17 15:53 Lactated Ringer's 1,000 ml @ 30 mls/hr Q24H PRN IV 10/24/17 22:30 10/27/17 22:29 Sodium Chloride 500 ml @ 30 mls/hr [id number] PRN IV 10/24/17 22:30 10/27/17 22:29 (Betadine 5% Antisepsis Kit) 1 applic EDUCATIONAL THERAPIST PRN EACH NARE 10/24/17 22:30 10/27/17 22:29 (Chlorhexidine 2% Cloth) 3 pack EDUCATIONAL THERAPIST PRN TOPICAL 10/24/17 22:30 10/27/17 22:29 (Ranexa) 1,000 mg Q12HR PO 10/25/17 21:00 10/25/17 20:17 (Plavix) 75 mg DAILY PO 10/26/17 09:00 10/26/17 10:12 (Norvasc) 5 mg DAILY PO 10/26/17 09:00 10/26/17 10:12 (Betapace) 80 mg Q12HR PO 10/26/17 21:00 UNV Vital Signs / I&O Vital Signs Date Time Temp Pulse Resp B/P (MAP) Pulse Ox O2 Delivery O2 Flow Rate FiO2 10/26/17 08:14 97.3 81 18 98 141/92 (108) 10/26/17 06:00 61 10/26/17 05:00 62 10/26/17 04:00 64 10/26/17 03:12 97.8 68 18 104/65 (78) 95 10/26/17 03:00 70 10/26/17 02:00 62 10/26/17 01:00 62 10/26/17 00:00 60 10/25/17 23:48 98.1 60 18 103/67 (79) 94 10/25/17 23:00 66 10/25/17 22:00 60 10/25/17 21:00 64 10/25/17 20:25 18 10/25/17 20:00 70 10/25/17 19:55 98.2 74 18 142/86 (104) 99 10/25/17 19:00 81 10/25/17 16:15 98.2 63 16 148/98 (115) 100 10/25/17 15:00 59 I/O 10/25/17 10/25/17 10/25/17 10/26/17 10/26/17 10/26/17 07:00 15:00 23:00 07:00 15:00 23:00 Intake Total 480 ml Balance 480 ml Intake Oral 480 ml # Voids 2 Physical Exam GENERAL: Alert and oriented x3, in no acute distress. HEENT: Shows pupils are reactive to light and accommodation. Extraocular movements intact. NECK: No elevation of jugular venous distention. No thyromegaly. No lymphadenopathy, no carotid bruits. LUNGS: Clear to auscultation bilaterally. CARDIOVASCULAR: Reveals a regular rate and rhythm without murmurs, rubs or gallops. ABDOMEN: Nontender, nondistended with good bowel sounds. No hepatosplenomegaly. EXTREMITIES: Show no clubbing, cyanosis or edema. Good peripheral pulses. NEUROLOGIC: Cranial nerves intact. Motor and sensory grossly intact. Assessment and Plan Assessment and Plan CAD s/p PTCA mid RCA ISR @ [facility] 08/2017, [place] diagonal branch was patent then, and is now occluded. echo EF 50% then interrogation of device is PPM, not ICD, getting set up for LifeVest and guideline directed medical therapy d/c metoprolol in favor of sotalol 80mg bid, hold for HR < 50. ECG daily to monitor QTc. JUSTICE owen. CM consult for meds and lifevest Chase Fung DO Oct 26, 2017 12:07
[2017-10-26] MEDS: RANOLAZINE 500 MG EXTENDED RELEASE TAB PO SCH ×2 (12:47→20:42)
[2017-10-26 14:23] LABS: BICARBONATE 24.3 MEQ/L (21.0-32.0); CALCIUM 8.5 MG/DL (8.5-10.1); CREATININE 1.32 MG/DL (0.60-1.30)
--- NOTE | 2017-10-26 14:39 | EKG ---
Date Performed: 10/26/2017 Time Performed: 12:13:20 PTAGE: 52 years EKG: Atrial pacing Poor R wave progression - probable normal variant Abnormal ECG PREVIOUS TRACING : 10/24/2017 05.00 Since the previous tracing, no significant change noted DOCTOR: Abhi Leonard Interpretating Date/Time 10/26/2017 14:38:28
[2017-10-26] MEDS: PARoxetine HCL 20 MG TAB PO SCH (20:41)
[2017-10-26] MEDS: SOTALOL HCL 80 MG TAB PO SCH (20:42)
[2017-10-27] VITALS (28 sets, daily range): BP systolic 105–135; BP diastolic 69–94; PULSE 57–76; RESP 16–20; TEMP 97.9–98.6; O2SAT 96–98
[2017-10-27] MEDS: MORPHINE SULFATE 4 MG/ML INJ IV PUSH PRN ×3 (03:47→21:38)
[2017-10-27 06:40] LABS: HEMATOCRIT 41.4 % (39.0-51.0); HEMOGLOBIN 14.9 GM/DL (13.0-17.0); MEAN CELL VOLUME 94.1 FL (80.0-100.0); MEAN CORPUSCULAR HEMOGLOBIN 33.8 PG (27.0-34.0); MEAN PLATELET VOLUME 8.4 FL (7.0-11.0); PLATELET COUNT 291 TH/MM3 (150-450); WHITE BLOOD COUNT 8.4 TH/MM3 (4.0-11.0)
[2017-10-27] MEDS: SODIUM CHLORIDE 0.9% FLUSH 10 ML FLUSH IV FLUSH SCH ×2 (08:44→21:39)
[2017-10-27] MEDS: RANOLAZINE 500 MG EXTENDED RELEASE TAB PO SCH ×2 (08:45→21:43)
[2017-10-27] MEDS: CLOPIDOGREL 75 MG TAB PO SCH (08:45)
[2017-10-27] MEDS: QUEtiapine FUMARATE 200 MG TAB PO SCH ×2 (08:46→21:42)
[2017-10-27] MEDS: ASPIRIN EC 81 MG TABEC PO SCH (08:46)
[2017-10-27] MEDS: buPROPion HCL 150 MG SUSTAINED RELEASE TAB PO SCH (08:47)
[2017-10-27] MEDS: SPIRONOLACTONE 25 MG TAB PO SCH (08:49)
[2017-10-27] MEDS: ATORVASTATIN 40 MG TAB PO SCH (08:49)
[2017-10-27] MEDS: FAMOTIDINE 20 MG TAB PO SCH ×2 (08:49→21:42)
[2017-10-27] MEDS: SOTALOL HCL 80 MG TAB PO SCH ×3 (09:00→21:41)
[2017-10-27] MEDS: amLODIPine BESYLATE 5 MG TAB PO SCH (09:00)
[2017-10-27] MEDS: LOSARTAN 50 MG TAB PO SCH (09:00)
--- NOTE | 2017-10-27 10:07 | HHI.PR ---
Subjective Remarks Follow-up on patient with chest pain, cardiomyopathy. Patient is currently doing well. Denies any chest pain, shortness of breath, fever or chills. Objective Vitals Vital Signs Date Time Temp Pulse Resp B/P (MAP) Pulse Ox O2 Delivery O2 Flow Rate FiO2 10/27/17 08:36 97.9 61 18 105/69 (81) 96 10/27/17 06:00 60 10/27/17 05:00 58 10/27/17 04:00 68 10/27/17 03:51 65 16 123/87 (99) 96 10/27/17 03:00 60 10/27/17 02:00 60 10/27/17 01:00 60 10/27/17 00:00 60 10/26/17 23:30 65 16 106/76 (86) 96 10/26/17 23:00 66 10/26/17 22:00 64 10/26/17 21:00 66 10/26/17 20:00 70 10/26/17 19:35 97.8 74 16 111/78 (89) 97 Manual Cuff/Palpation 10/26/17 19:00 73 10/26/17 18:00 83 10/26/17 17:42 97.3 70 16 113/80 (91) 98 113/80 (91) 10/26/17 17:00 70 10/26/17 16:00 71 10/26/17 15:00 74 10/26/17 14:00 66 10/26/17 13:00 72 10/26/17 12:00 61 10/26/17 11:00 70 I/O 10/26/17 10/26/17 10/26/17 10/27/17 10/27/17 10/27/17 07:00 15:00 23:00 07:00 15:00 23:00 Intake Total 480 ml 480 ml 240 ml Output Total 750 ml Balance 480 ml -270 ml 240 ml Intake Oral 480 ml 480 ml 240 ml Output Urine Total 750 ml # Voids 2 2 # Bowel Movements 0 Result Diagram: 10/27/17 0608 10/26/17 1315 Imaging Last Impressions Chest X-Ray 10/24/17 0027 Signed Impressions: CONCLUSION: Minimal basilar atelectasis. Pacer leads overlying right atrium and right ventr icle. Objective Remarks GENERAL: Alert, oriented 3, NAD. SKIN: Warm and dry. HEAD: Normocephalic. EYES: No scleral icterus. No injection or drainage. NECK: Supple, trachea midline. No JVD or lymphadenopathy. CARDIOVASCULAR: Regular rate and rhythm without murmurs, gallops, or rubs. RESPIRATORY: Breath sounds equal bilaterally. No accessory muscle use. GASTROINTESTINAL: Abdomen soft, non-tender, nondistended. MUSCULOSKELETAL: No cyanosis, or edema. BACK: Nontender without obvious deformity. No CVA tenderness. Procedures None A/P Assessment and Plan 52-year-old male with a past medical history significant for coronary artery disease, hypertension, hyperlipidemia and bipolar/schizophrenia presents to the emergency department for the evaluation of chest pain. NSTEMI Cardiomyopathy Hx of previous CABG 2009 and stent implantations x 12, last one in August of this year in [facility] -Cardiology following, Patient underwent cath - shows in-stent stenosis of prior stents. EF 30% on cath. -Continue on Ranexa, Imdur for chest pain -Continue to monitor on cardiac telemetry -ASA 81mg, Plavix 75mg and Lipitor 40mg daily -Cardiology changed BB to Sotalol 80mg Q12hrs. -Echo today - If EF shows more than 35%, pt may not need a LifeVest. Hypertension Dyslipidemia -Continue patient on losartan 100 mg daily, spironolactone 12.5 mg daily and Lipitor 40 mg daily - BP has been on the lower side today. Heart rate controlled. Some of the medications were held due to low BP. Bipolar disorder/schizophrenia, stable -Continue on home medications Full code. Ambulation. discharge plan: Possible discharge home tomorrow with LifeVest. Adam Maldonado DO Oct 27, 2017 10:07 am
--- NOTE | 2017-10-27 12:26 | PD.CARD.PN ---
Subjective Subjective Remarks patient seen and examined. No chest pain today. Refused imdur due to severe headaches. Tele with episodes of IVCD. Seen by Db 10/26 who is processing order for LifeVest. Will likely be available 10/28 due to Medicaid. Objective Medications Current Medications Medications (Trade) Dose Ordered Sig/Pallavi Route Start Time Stop Time Status Last Admin (NS Flush) 2 ml BID IV FLUSH 10/24/17 09:00 10/27/17 08:44 (NS Flush) 2 ml UNSCH PRN IV FLUSH 10/24/17 02:30 (Morphine Inj) 2 mg Q3H PRN IV PUSH 10/24/17 02:30 10/27/17 03:47 (Ecotrin Ec) 81 mg DAILY PO 10/25/17 09:00 10/27/17 08:46 (Lipitor) 40 mg DAILY PO 10/25/17 09:00 10/27/17 08:49 (Wellbutrin Sr) 150 mg DAILY PO 10/25/17 09:00 10/27/17 08:47 (Cozaar) 100 mg DAILY PO 10/24/17 18:00 10/26/17 10:08 (Aldactone) 25 mg DAILY PO 10/25/17 09:00 10/27/17 08:49 (Paxil) 30 mg HS PO 10/24/17 21:00 10/26/17 20:41 (SEROquel) 200 mg BID PO 10/24/17 21:00 10/27/17 08:46 (Pepcid) 20 mg BID PO 10/24/17 21:00 10/27/17 08:49 (Catapres) 0.1 mg Q6H PRN PO 10/24/17 16:15 10/25/17 15:53 Lactated Ringer's 1,000 ml @ 30 mls/hr Q24H PRN IV 10/24/17 22:30 10/27/17 22:29 Sodium Chloride 500 ml @ 30 mls/hr [id number] PRN IV 10/24/17 22:30 10/27/17 22:29 (Betadine 5% Antisepsis Kit) 1 applic FONDANT MACHINE OPERATOR PRN EACH NARE 10/24/17 22:30 10/27/17 22:29 (Chlorhexidine 2% Cloth) 3 pack FONDANT MACHINE OPERATOR PRN TOPICAL 10/24/17 22:30 10/27/17 22:29 (Ranexa) 1,000 mg Q12HR PO 10/25/17 21:00 10/27/17 08:45 (Plavix) 75 mg DAILY PO 10/26/17 09:00 10/27/17 08:45 (Norvasc) 5 mg DAILY PO 10/26/17 09:00 10/26/17 10:12 (Betapace) 80 mg Q12HR PO 10/26/17 21:00 10/26/17 20:42 Vital Signs / I&O Vital Signs Date Time Temp Pulse Resp B/P (MAP) Pulse Ox O2 Delivery O2 Flow Rate FiO2 10/27/17 11:46 98.1 70 18 105/74 (84) 96 10/27/17 08:36 97.9 61 18 105/69 (81) 96 10/27/17 06:00 60 10/27/17 05:00 58 10/27/17 04:00 68 10/27/17 03:51 65 16 123/87 (99) 96 10/27/17 03:00 60 10/27/17 02:00 60 10/27/17 01:00 60 10/27/17 00:00 60 10/26/17 23:30 65 16 106/76 (86) 96 10/26/17 23:00 66 10/26/17 22:00 64 10/26/17 21:00 66 10/26/17 20:00 70 10/26/17 19:35 97.8 74 16 111/78 (89) 97 Manual Cuff/Palpation 10/26/17 19:00 73 10/26/17 18:00 83 10/26/17 17:42 97.3 70 16 113/80 (91) 98 113/80 (91) 10/26/17 17:00 70 10/26/17 16:00 71 10/26/17 15:00 74 10/26/17 14:00 66 10/26/17 13:00 72 I/O 10/26/17 10/26/17 10/26/17 10/27/17 10/27/17 10/27/17 07:00 15:00 23:00 07:00 15:00 23:00 Intake Total 480 ml 480 ml 240 ml Output Total 750 ml Balance 480 ml -270 ml 240 ml Intake Oral 480 ml 480 ml 240 ml Output Urine Total 750 ml # Voids 2 2 # Bowel Movements 0 Physical Exam GENERAL: Alert and oriented x3, in no acute distress. HEENT: Shows pupils are reactive to light and accommodation. Extraocular movements intact. NECK: No elevation of jugular venous distention. No thyromegaly. No lymphadenopathy, no carotid bruits. LUNGS: Clear to auscultation bilaterally. CARDIOVASCULAR: Reveals a regular rate and rhythm without murmurs, rubs or gallops. ABDOMEN: Nontender, nondistended with good bowel sounds. No hepatosplenomegaly. EXTREMITIES: Show no clubbing, cyanosis or edema. Good peripheral pulses. NEUROLOGIC: Cranial nerves intact. Motor and sensory grossly intact. Laboratory Laboratory Tests Test 10/26/17 13:15 10/27/17 06:08 Blood Urea Nitrogen 16 MG/DL Creatinine 1.32 MG/DL Random Glucose 127 MG/DL Calcium Level 8.5 MG/DL Sodium Level 139 MEQ/L Potassium Level 4.2 MEQ/L Chloride Level 106 MEQ/L Carbon Dioxide Level 24.3 MEQ/L Anion Gap 9 MEQ/L Estimat Glomerular Filtration Rate 57 ML/MIN White Blood Count 8.4 TH/MM3 Red Blood Count 4.40 MIL/MM3 Hemoglobin 14.9 GM/DL Hematocrit 41.4 % Mean Corpuscular Volume 94.1 FL Mean Corpuscular Hemoglobin 33.8 PG Mean Corpuscular Hemoglobin Concent 36.0 % Red Cell Distribution Width 14.0 % Platelet Count 291 TH/MM3 Mean Platelet Volume 8.4 FL Assessment and Plan Assessment and Plan CAD s/p PTCA mid RCA ISR @ [facility] 08/2017, [place] diagonal branch was patent then, and is now occluded. echo EF 50% then interrogation of device was PPM, not ICD, getting set up for LifeVest and guideline directed medical therapy d/c'd metoprolol in favor of sotalol 80mg bid, hold for HR < 50. ECG daily to monitor QTc. reduce spironolactone to 12.5mg daily to avoid dehydration and hypotension FU dr. owen. CM consult for meds and lifevest Chase Fung DO Oct 27, 2017 12:26
[2017-10-27] MEDS ORDERED: PILL SPLITTER OTHER PRN (12:30)
[2017-10-27] MEDS ORDERED: SODIUM CHLORID 0.9% 500 ML INJ 500 ML IV SCH (14:15)
--- NOTE | 2017-10-27 14:37 | EKG ---
Date Performed: 10/26/2017 Time Performed: 21:11:38 PTAGE: 52 years EKG: Sinus rhythm with 1st degree A-V block Possible anteroseptal infarct - age undetermined Inferior ST elevation, CO NSIDER ACUTE INFARCT Low QRS voltages in precordial leads Abnormal ECG PREVIOUS TRACING : 10/26/2017 12.13 Since the previous tracing, no significant change noted DOCTOR: Abhi Leonard Interpretating Date/Time 10/27/2017 14:34:48
--- NOTE | 2017-10-27 16:32 | ECHRPT ---
Indication: CHEST PAIN- EVAL EF CONCLUSIONS The left ventricular systolic function is severely reduced with an estimated ejection fraction in th e range of 25-30%. Mildly dilated left ventricle. Mild concentric left ventricular hypertrophy. There is global left ventricular dysfunction. The right ventricular systoilc function is mildly decreased. There is mild tricuspid valve regurgitation. BP: / HR: Rhythm: MEASUREMENTS (Male / Female) Normal Values Technical Quality: 2D ECHO LV Diastolic Diameter PLAX 5.1 cm 4.2 - 5.9 / 3.9 - 5.3 cm LV Systolic Diameter PLAX 4.3 cm IVS Diastolic Thickness 1.5 cm 0.6 - 1.0 / 0.6 - 0.9 cm LVPW Diastolic Thickness 0.7 cm 0.6 - 1.0 / 0.6 - 0.9 cm LV Relative Wall Thickness 0.4 RV Internal Dim ED PLAX 2.4 cm M-MODE Aortic Root Diameter MM 3.2 cm AV Cusp Separation MM 2.1 cm DOPPLER Mitral E Point Velocity 68.6 cm/s Mitral A Point Velocity 63.7 cm/s Mitral E to A Ratio 1.1 TR Peak Velocity 218.0 cm/s TR Peak Gradient 19.0 mmHg Right Atrial Pressure 5.0 mmHg Pulmonary Artery Systolic Pressu 24.0 mmHg Right Ventricular Systolic Press 24.0 mmHg FINDINGS LEFT VENTRICLE Mildly dilated left ventricle. Mild concentric left ventricular hypertrophy. The left ventricular systolic function is severely reduced with an estimated ejection fraction in th e range of 25-30%. There is global left ventricular dysfunction. This study was not technically sufficient to allow for evaluation of left ventricular diastolic func tion. RIGHT VENTRICLE The right ventricular size is normal. The right ventricular systoilc function is mildly decreased. A pacemaker wire is noted. LEFT ATRIUM The left atrial size is mildly dilated. RIGHT ATRIUM There is a pacemaker wire present in the right atrial cavity. The right atrial size is mildly dilated. ATRIAL SEPTUM Normal atrial septal thickness without atrial level shunting by limited color doppler interrogation. AORTA The aortic root and proximal ascending aorta are normal in size on limited imaging. MITRAL VALVE Grossly normal No mitral valve regurgitation. No mitral valve stenosis. AORTIC VALVE Trileaflet aortic valve. No aortic valve stenosis or regurgitation. TRICUSPID VALVE Grossly normal There is mild tricuspid valve regurgitation. The estimated pulmonary arterial pressure is 30 mmHg. PULMONARY VALVE The pulmonary valve is not well visualized. VESSELS The inferior vena cava is normal in size. PERICARDIUM No pericardial effusion. Vincent G. Duran DO (Electronically Signed) Final Date:27 October 2017 16:31
[2017-10-27] MEDS: PARoxetine HCL 20 MG TAB PO SCH (21:42)
[2017-10-28] VITALS (11 sets, daily range): BP systolic 90–115; BP diastolic 67–80; PULSE 58–72; RESP 16–18; TEMP 97.5–98.4; O2SAT 95–97
[2017-10-28 07:35] LABS: BICARBONATE 24.1 MEQ/L (21.0-32.0); CALCIUM 8.4 MG/DL (8.5-10.1); CREATININE 1.29 MG/DL (0.60-1.30)
--- NOTE | 2017-10-28 07:43 | PD.CARD.PN ---
Subjective Subjective Remarks continues to have intermittent stable substernal chest pain, patient states this is his "usual" pain. Left sided chest pain he presented with has resolved. SBP 90 this morning, he does feel somewhat dizzy at time. No SOB or palpitations Objective Medications Current Medications Medications (Trade) Dose Ordered Sig/Pallavi Route Start Time Stop Time Status Last Admin (NS Flush) 2 ml BID IV FLUSH 10/24/17 09:00 10/27/17 21:39 (NS Flush) 2 ml UNSCH PRN IV FLUSH 10/24/17 02:30 (Morphine Inj) 2 mg Q3H PRN IV PUSH 10/24/17 02:30 10/27/17 21:38 (Ecotrin Ec) 81 mg DAILY PO 10/25/17 09:00 10/27/17 08:46 (Lipitor) 40 mg DAILY PO 10/25/17 09:00 10/27/17 08:49 (Wellbutrin Sr) 150 mg DAILY PO 10/25/17 09:00 10/27/17 08:47 (Cozaar) 100 mg DAILY PO 10/24/17 18:00 10/26/17 10:08 (Paxil) 30 mg HS PO 10/24/17 21:00 10/27/17 21:42 (SEROquel) 200 mg BID PO 10/24/17 21:00 10/27/17 21:42 (Pepcid) 20 mg BID PO 10/24/17 21:00 10/27/17 21:42 (Catapres) 0.1 mg Q6H PRN PO 10/24/17 16:15 10/25/17 15:53 (Ranexa) 1,000 mg Q12HR PO 10/25/17 21:00 10/27/17 21:43 (Plavix) 75 mg DAILY PO 10/26/17 09:00 10/27/17 08:45 (Norvasc) 5 mg DAILY PO 10/26/17 09:00 10/26/17 10:12 (Betapace) 80 mg Q12HR PO 10/26/17 21:00 10/27/17 21:41 (Aldactone) 12.5 mg DAILY PO 10/28/17 09:00 (Pill Splitter) 1 ea UNSCH PRN OTHER 10/27/17 12:30 Vital Signs / I&O Vital Signs Date Time Temp Pulse Resp B/P (MAP) Pulse Ox O2 Delivery O2 Flow Rate FiO2 10/28/17 06:00 60 10/28/17 05:00 60 10/28/17 04:00 59 10/28/17 04:00 97.5 60 18 90/67 (75) 95 10/28/17 03:00 60 10/28/17 02:00 60 10/28/17 01:00 58 10/28/17 00:00 59 10/28/17 00:00 98.1 60 18 112/80 (91) 97 10/27/17 23:00 60 10/27/17 22:00 64 10/27/17 21:00 62 10/27/17 20:00 98.6 64 20 135/94 (108) 97 10/27/17 20:00 65 10/27/17 19:00 76 10/27/17 18:00 64 10/27/17 17:00 57 10/27/17 17:00 18 10/27/17 16:01 98.6 62 18 117/75 (89) 98 10/27/17 16:00 60 10/27/17 15:00 60 10/27/17 14:00 64 10/27/17 13:00 76 10/27/17 12:00 60 10/27/17 11:46 98.1 70 18 105/74 (84) 96 10/27/17 11:00 62 10/27/17 10:00 62 10/27/17 09:00 64 10/27/17 08:36 97.9 61 18 105/69 (81) 96 10/27/17 08:00 60 I/O 10/27/17 10/27/17 10/27/17 10/28/17 10/28/17 10/28/17 07:00 15:00 23:00 07:00 15:00 23:00 Intake Total 240 ml 980 ml 480 ml Output Total 500 ml Balance 240 ml 480 ml 480 ml Intake Oral 240 ml 480 ml 480 ml IV Total 500 ml Output Urine Total 500 ml # Voids 2 3 1 # Bowel Movements 0 0 Physical Exam GENERAL: SKIN: Warm and dry. HEAD: Atraumatic. Normocephalic. EYES: Pupils equal and round. No scleral icterus ENT: No nasal bleeding or discharge. NECK: Trachea midline. No JVD. CARDIOVASCULAR: Regular rate and rhythm. no murmurs RESPIRATORY: No accessory muscle use. Clear to auscultation. Breath sounds equal bilaterally. GASTROINTESTINAL: Abdomen soft, non-tender, nondistended. Hepatic and splenic margins not palpable. MUSCULOSKELETAL: Extremities without clubbing, cyanosis, or edema. No obvious deformities. NEUROLOGICAL: Awake and alert. No obvious cranial nerve deficits. Normal speech. PSYCHIATRIC: Appropriate mood and affect; insight and judgment normal. Laboratory Laboratory Tests Test 10/28/17 06:20 Blood Urea Nitrogen 18 MG/DL Creatinine 1.29 MG/DL Random Glucose 84 MG/DL Calcium Level 8.4 MG/DL Sodium Level 139 MEQ/L Potassium Level 4.1 MEQ/L Chloride Level 106 MEQ/L Carbon Dioxide Level 24.1 MEQ/L Anion Gap 9 MEQ/L Estimat Glomerular Filtration Rate 59 ML/MIN Assessment and Plan Problem List: (1) Chest pain ICD Codes: R07.9 - Chest pain, unspecified Status: Acute (2) Cardiomyopathy ICD Codes: I42.9 - Cardiomyopathy, unspecified Assessment and Plan 52 yo M with CAD, CABG x 3 (2009), HTN, cardiomyopathy and HLD admitted for chest pain. CAD s/p PTCA mid RCA ISR @ [facility] 08/2017, [place] diagonal branch was patent then, and is now occluded. echo EF 50% then now reduced to 25-30% interrogation of device was PPM, not ICD, getting set up for LifeVest and guideline directed medical therapy cont Ranexa, plavix, asa, statin d/c'd metoprolol in favor of sotalol 80mg bid, SBP ~90 with mild dizziness. will hold amlodipine. QTc ok (438ms) Will need to FU Dr. Ogden in outpatient CM consult for meds and lifevest Problem Qualifiers (1) Chest pain: Qualified Codes: R07.9 - Chest pain, unspecified (2) Cardiomyopathy: Qualified Codes: I42.0 - Dilated cardiomyopathy Brooklyn Ribeiro Oct 28, 2017 07:43
[2017-10-28] MEDS ORDERED: ECASA81 PO (08:36)
[2017-10-28] MEDS ORDERED: RANO500 PO (08:36)
[2017-10-28] MEDS ORDERED: SOTA80 PO (08:36)
[2017-10-28] MEDS ORDERED: SPIR25TA PO (08:36)
[2017-10-28] MEDS ORDERED: CLOP75TA PO (08:36)
[2017-10-28] MEDS: RANOLAZINE 500 MG EXTENDED RELEASE TAB PO SCH (08:43)
[2017-10-28] MEDS: ATORVASTATIN 40 MG TAB PO SCH (08:43)
[2017-10-28] MEDS: QUEtiapine FUMARATE 200 MG TAB PO SCH (08:43)
[2017-10-28] MEDS: CLOPIDOGREL 75 MG TAB PO SCH (08:43)
[2017-10-28] MEDS: SOTALOL HCL 80 MG TAB PO SCH (08:43)
[2017-10-28] MEDS: buPROPion HCL 150 MG SUSTAINED RELEASE TAB PO SCH (08:43)
[2017-10-28] MEDS: ASPIRIN EC 81 MG TABEC PO SCH (08:44)
[2017-10-28] MEDS: FAMOTIDINE 20 MG TAB PO SCH (08:44)
[2017-10-28] MEDS: SODIUM CHLORIDE 0.9% FLUSH 10 ML FLUSH IV FLUSH SCH (08:44)
[2017-10-28] MEDS: LOSARTAN 50 MG TAB PO SCH (08:45)
[2017-10-28] MEDS ORDERED: SPIRONOLACTONE 25 MG TAB PO SCH (09:00)
--- NOTE | 2017-10-28 14:54 | EKG ---
Date Performed: 10/27/2017 Time Performed: 14:04:40 PTAGE: 52 years EKG: CONSIDER ACUTE ST ELEVATION IN Sinus rhythm with 1st degree A-V block. Rightward axis Possible septal infarct - age undetermined Inferior ST omi vation, CONSIDER ACUTE INFARCT Since the previous tracing, no significant change noted Abnormal ECG PREVIOUS TRACING : 10/26/2017 21.11 DOCTOR: Enrico Griffin Interpretating Date/Time 10/28/2017 14:51:00
--- NOTE | 2017-10-28 14:54 | EKG ---
Date Performed: 10/28/2017 Time Performed: 09:40:20 PTAGE: 52 years EKG: CONSIDER ACUTE ST ELEVATION ND Sinus rhythm with 1st degree A-V block. Rightward axis Inferior ST elevation, CONSIDER ACUTE INFARCT Lateral ST-T changes are nonspecific Since the previous tracing, no significant change noted Abnormal ECG PREVIOUS TRACING : 10/27/2017 22.18 DOCTOR: Enrico Griffin Interpretating Date/Time 10/28/2017 14:51:15
--- NOTE | 2017-10-28 14:54 | EKG ---
Date Performed: 10/27/2017 Time Performed: 22:18:20 PTAGE: 52 years EKG: CONSIDER ACUTE ST ELEVATION IN Sinus rhythm with 1st degree A-V block Demand atrial pacing Rightward axis Anteroseptal infarct - age undetermine d Inferior ST elevation, CONSIDER ACUTE INFARCT Since the previous tracing, no significant change not ed Abnormal ECG PREVIOUS TRACING : 10/27/2017 14.04 DOCTOR: Enrico Griffin Interpretating Date/Time 10/28/2017 14:51:08
--- NOTE | 2017-10-28 18:02 | HHI.DS ---
Discharge Summary Admission Date Oct 24, 2017 at 02:24 Discharge Date: Oct 28, 2017 Admitting Diagnosis cp (1) Cardiac arrest ICD Codes: I46.9 - Cardiac arrest, cause unspecified (2) Cardiomyopathy ICD Codes: I42.9 - Cardiomyopathy, unspecified Procedures Cardiac cath 1. Left internal mammary to the left anterior descending coronary artery is widely patent. Left anterior descending is very small caliber size. 2. Saphenous vein graft to the diagonal branch: The graft itself is patent, but just distal to the anastomosis it is subtotally occluded. It does have retrograde filling partially back into the mid-left anterior descending coronary artery, which feeds some septal perforators, but not the LAD. 3. Saphenous vein graft to what I assume to be an obtuse marginal branch appears to be occluded at the aortic anastomosis. ASCENDING AORTOGRAPHY: Ascending aortography was performed in the left anterior oblique using a 40 cc contrast injection. The ascending aorta is mildly dilated. There is no additional bypass grafts visualized outside of the one already selectively engaged. Brief History 52-year-old male with a past medical history significant for coronary artery disease, hypertension, hyperlipidemia and bipolar/schizophrenia presents to the emergency department for the evaluation of chest pain. The patient states that "his heart hurts." He complains of left-sided chest pain that he describes as a squeezing. He states the pain started sometime last night although cannot specify exactly when. He reports drinking alcohol last night. He endorses accompanying shortness of breath. Denies abdominal pain. No nausea/vomiting/ diarrhea. No lateralizing signs/symptoms. No fevers/chills. CBC/BMP: 10/27/17 0608 10/28/17 0620 Significant Findings Laboratory Tests Test 10/26/17 13:15 10/27/17 06:08 10/28/17 06:20 Creatinine 1.32 MG/DL (0.60-1.30) Random Glucose 127 MG/DL (74-106) Estimat Glomerular Filtration Rate 57 ML/MIN (>89) 59 ML/MIN (>89) Red Blood Count 4.40 MIL/MM3 (4.50-5.90) Calcium Level 8.4 MG/DL (8.5-10.1) Imaging Last Impressions Chest X-Ray 10/24/17 0027 Signed Impressions: CONCLUSION: Minimal basilar atelectasis. Pacer leads overlying right atrium and right ventr icle. PE at Discharge GENERAL: Alert, Oriented x 3, NAD. SKIN: Warm and dry. HEAD: Normocephalic. EYES: No scleral icterus. No injection or drainage. NECK: Supple, trachea midline. No JVD or lymphadenopathy. CARDIOVASCULAR: Regular rate and rhythm without murmurs, gallops, or rubs. RESPIRATORY: Breath sounds equal bilaterally. No accessory muscle use. GASTROINTESTINAL: Abdomen soft, non-tender, nondistended. MUSCULOSKELETAL: No cyanosis, or edema. BACK: Nontender without obvious deformity. No CVA tenderness. Hospital Course 52-year-old male with a past medical history significant for coronary artery disease, hypertension, hyperlipidemia and bipolar/schizophrenia presents to the emergency department for the evaluation of chest pain. NSTEMI Cardiomyopathy Hx of previous CABG 2009 and stent implantations x 12, last one in August of this year in [facility] -Cardiology following, Patient underwent cath - shows in-stent stenosis of prior stents. EF 30% on cath. -Continue on Ranexa, Imdur for chest pain -Continue to monitor on cardiac telemetry -ASA 81mg, Plavix 75mg and Lipitor 40mg daily -Cardiology changed BB to Sotalol 80mg Q12hrs. -Echo shows EF around 30%. - We were working on getting LifeVest for patient. However, he decided to leave AM on 10/28/2017. Patient was advised that he could potentially go into life threatening arrhythmia. He is alert, oriented x 3 and decided to leave [place]. Hypertension Dyslipidemia -losartan 100 mg daily, spironolactone 12.5 mg daily and Lipitor 40 mg daily Bipolar disorder/schizophrenia, stable -Continue on home medications Full code. Ambulation. Pt Condition on Discharge: Stable Discharge Disposition: Discharge Home (Left AMA) Discharge Instructions DIET: Follow Instructions for: As Tolerated, No Restrictions, Heart Healthy Diet Speech Therapy-Diet Recommenda: Regular Activities you can perform: Regular-No Restrictions Follow up Referrals: Cardiology with Jose G Ogden D.o. PCP Follow-up - 1 Week Adam Maldonado DO Oct 28, 2017 18:01
== END 2017-10-28 11:12 | disposition left against medical advice (07) ==
LOC: NEPE 00:15 → NEDA 02:24 → UNDOADMOB 02:27 → NEPGCP 13:43 → HCIS 10-25 08:12
PROVIDERS: ADMIT Hospitalist; ATTEND Hospitalist
DX: I21.4 Non-ST elevation (NSTEMI) myocardial infarction (principal); T82.855A Stenosis of coronary artery stent, initial encounter; I25.110 Atherosclerotic heart disease of native coronary artery with unstable angina pectoris; I44.0 Atrioventricular block, first degree; R00.0 Tachycardia, unspecified; I42.0 Dilated cardiomyopathy; I10 Essential (primary) hypertension; E78.5 Hyperlipidemia, unspecified; F31.9 Bipolar disorder, unspecified; F20.9 Schizophrenia, unspecified; F17.210 Nicotine dependence, cigarettes, uncomplicated; Z59.0 Homelessness; Z79.01 Long term (current) use of anticoagulants; Z79.82 Long term (current) use of aspirin; Z79.899 Other long term (current) drug therapy; Z95.0 Presence of cardiac pacemaker; Z95.1 Presence of aortocoronary bypass graft; Y83.1 Surgical operation with implant of artificial internal device as the cause of abnormal reaction of the patient, or of later complication, without mention of misadventure at the time of the procedure
CPT/HCPCS: 71045; 80048; 80053; 82550; 82552; 83690; 84484; 85025; 85027; 85610; 85730; 86850; 86900; 86901; 93005; 93306; 93459; 93567; 96361; 96372; 96374; 96376; 99152; 99153; 99285; C1760; C1769; C1893; G0269; G0378; J1644; J1650; J2250; J2270; J3010; J7030; J7040; Q9967

== ENCOUNTER 2018-01-18 18:48 | Inpatient (IN) ==
[2018-01-18] MEDS ORDERED: Morphine Inj 4 MG/ML Vial IV.PUSH ONE (19:24)
--- NOTE | 2018-01-18 19:33 | ED ---
HPI General Chief Complaint: Chest Pain Stated Complaint: Chest pain Time Seen by Provider: 01/18/18 19:01 Source: patient Mode of arrival: EMS Limitations: no limitations History of Present Illness HPI narrative: The patient is a 53-year-old male who presents to the emergency department for chest pain. The patient states he was on a sailboat earlier today, fishing and drinking beer when he developed left-sided chest pain. The patient states the chest pain is left-sided, described as pressure and pinching, nonradiating, and associated with nausea, vomiting, and shortness of breath. The patient did take his Plavix earlier today, does not take aspirin. He did take nitroglycerin sublingual prior to arrival with mild alleviation of his pain, however, continues to have pain. The patient does have a history of previous CABG and coronary artery disease with recent cardiac catheterization in October [address] Areavlo. The patient was noted at that time that there was no amenable disease to stents, he was advised to have multiple medical management. The patient states he does take his medications, but continues to drink alcohol and smoke tobacco. The patient did see his president sales and marketing within the last 2 weeks, [address]. Ogden, who advised him to stop smoking. Symptoms are moderate. There are no current alleviating or exacerbating factors. MD complaint: chest pain Complete Quality Measures for STEMI Alert Patients STEMI Alert: No Onset (ago): hour(s) Duration: constant Onset: during rest Pain location: left chest Severity: moderate Severity scale (1-10): 5 Quality: heaviness Pain radiation: none Relieving factors: nothing Exacerbating factors: nothing Associated symptoms: nausea, vomiting and dyspnea Treatments prior to arrival chest pain: nitroglycerin Related Data Home Medications Medication Instructions Recorded Confirmed atorvastatin 40 mg PO DAILY 01/18/18 01/18/18 benztropine 1 mg PO DAILY 01/18/18 01/18/18 bupropion HCl 150 mg PO DAILY 01/18/18 01/18/18 clopidogrel [Plavix] 75 mg PO DAILY 01/18/18 01/18/18 losartan 100 mg PO DAILY 01/18/18 01/18/18 nitroglycerin [Nitrostat] 0.3 mg SUBLINGUAL Q5-15M PRN 01/18/18 01/18/18 paroxetine mesylate 30 mg PO DAILY 01/18/18 01/18/18 quetiapine 400 mg PO BID 01/18/18 01/18/18 ranitidine HCl 150 mg PO DAILY 01/18/18 01/18/18 Allergies Allergy/AdvReac Type Severity Reaction Status Date / Time No Known Allergies Allergy Unknown Uncoded 10/24/17 00:36 Review of Systems ROS: all other systems reviewed are negative [facility] Medical History Medical History Depression (Acute) Heartburn (Acute) GERD (gastroesophageal reflux disease) (Acute) Myocardial infarction (Acute) High cholesterol (Acute) High triglycerides (Acute) Hypertension (Acute) Chest pain (Acute) Surgical History Surgical History Hx of CABG (Acute) Hx of cardiac cath (Acute) Social History Social History Substance History: No History of Abuse Second Hand Smoke Exposure: Yes Smoking Status: Current every day smoker Tobacco Type: Cigarettes How Often Do You Have a Drink Containing Alcohol: 4 or more times a week Recent Travel in [facility] within the Last 8 Weeks: No Recent Out of Country Travel within the Last 8 Weeks: No Immunization History Tetanus Immunization: <5 Years Hx Influenza Vaccine This Season: Yes Exam Narrative Exam Narrative: GENERAL: Awake, alert, 53-year-old male who appears his stated age and is in no acute respiratory distress. SKIN: Focused skin assessment warm/dry. HEAD: Atraumatic. Normocephalic. EYES: No injection or drainage. ENT: No nasal bleeding or discharge. Breath smells of alcohol. NECK: Trachea midline. No JVD. CARDIOVASCULAR: Regular, tachycardic with a heart rate of 105. No murmur appreciated. Well-healed midline sternal scar. Pacemaker in place left upper chest wall. RESPIRATORY: No accessory muscle use. Clear to auscultation. Breath sounds equal bilaterally. GASTROINTESTINAL: Abdomen soft, non-tender, nondistended. MUSCULOSKELETAL: No obvious deformities. No clubbing. No cyanosis. Trace edema to the feet with suntan line noted in a flip-flop distribution. NEUROLOGICAL: Awake and alert. No obvious cranial nerve deficits. Motor grossly within normal limits. Normal speech. PSYCHIATRIC: Appropriate mood and affect; insight and judgment normal. Course Initial Documented Vital Signs Temperature 98.2 F 01/18/18 19:07 Pulse Rate 107 H 01/18/18 19:07 Respiratory Rate 20 01/18/18 19:07 Blood Pressure 118/67 01/18/18 19:07 Pulse Oximetry 98 01/18/18 19:07 Last Documented Vital Signs Temperature 98.2 F 01/18/18 19:15 Pulse Rate 100 H 01/18/18 20:27 Respiratory Rate 20 01/18/18 20:27 Blood Pressure 160/70 H 01/18/18 20:27 Pulse Oximetry 98 01/18/18 20:27 Medical Decision Making MDM Narrative Medical decision making narrative: IV was established, labs are drawn and sent, and the patient was placed on cardiac telemetry monitoring and continuous pulse oximetry monitoring. The patient refused Nitropaste. The patient was administered aspirin and Zofran. Chest x-ray was obtained. EKG was ordered and interpreted. Troponin, lipase, alcohol level, and CK-MB were sent to lab. I did review the EMR, the patient had a cardiac catheterization performed in October [address] Arevalo, he advised optimal medical management. The patient states he wanted to apply a LifeVest at that time because his ejection fraction was less than 35%, however, he declined a LifeVest at that time and states he is currently not interested in a LifeVest. The patient's alcohol level is elevated at 178. Troponin is elevated 0.07, his previous admission of 0.06. I am not sure if there is any utility in performing a stress test as he had a cardiac catheterization which revealed chronic disease that was not amenable to intervention per Dr. Arevalo's notes. However, the patient was recommended to have a LifeVest according to his report. Therefore, patient will be admitted for serial troponins. Medical Screen Exam Complete: Yes Emergency Medical Condition: Yes Differential Diagnosis Differential Diagnosis: Differential diagnosis includes acute coronary syndrome , alcohol intoxication, pancreatitis, pericarditis, myocarditis, GERD, esophageal spasm, noncompliance. Lab Data Result diagrams: 01/18/18 19:45 01/18/18 19:45 Lab Results 01/18/18 01/18/18 01/18/18 Range/Units 19:45 19:45 19:45 WBC 9.0 (4.0-11.0) th/mm3 RBC 4.16 L (4.50-5.90) mil/mm3 Hgb 14.2 (13.0-17.0) gm/dL Hct 39.8 (39.0-51.0) % MCV 95.7 (80.0-100.0) fL MCH 34.1 H (27.0-34.0) pg MCHC 35.6 (32.0-36.0) % RDW 14.7 (11.6-17.2) % Plt Count 324 (150-450) th/mm3 MPV 8.3 (7.0-11.0) fL Neut % (Auto) 72.5 H (16.0-70.0) % Lymph % (Auto) 18.6 (9.0-44.0) % Rosebud % (Auto) 6.4 (0.0-8.0) % Eos % (Auto) 1.1 (0.0-4.0) % Baso % (Auto) 1.4 (0.0-2.0) % Neut # (Auto) 6.6 (1.8-7.7) th/mm3 Lymph # (Auto) 1.7 (1.0-4.8) th/mm3 Rosebud # (Auto) 0.6 (0.0-0.9) th/mm3 Eos # (Auto) 0.1 (0.0-0.4) th/mm3 Baso # (Auto) 0.1 (0.0-0.2) th/mm3 WBC Differential . Differential Comment Auto diff final PT (9.8-11.6) sec INR Ratio APTT (24.3-30.1) sec Sodium 141 (136-145) meq/L Potassium 3.6 (3.5-5.1) meq/L Chloride 108 H (98-107) meq/L Carbon Dioxide 20.4 L (21.0-32.0) meq/L Anion Gap 13 (5-15) meq/L BUN 8 (7-18) mg/dL Creatinine 1.32 H (0.60-1.30) mg/dL Estimated GFR 57 L (>89) mL/min Random Glucose 90 (74-106) mg/dL Calcium 8.1 L (8.5-10.1) mg/dL Total Bilirubin 0.3 (0.2-1.0) mg/dL AST 24 (15-37) U/L ALT 29 (12-78) U/L Alkaline Phosphatase 73 (45-117) U/L Troponin I 0.07 H (0.02-0.05) ng/mL B-Natriuretic Peptide 75 (0-100) pg/mL Total Protein 7.4 (6.4-8.2) g/dL Albumin 4.0 (3.4-5.0) g/dL Lipase 98 (73-393) U/L Serum Alcohol 178 H (0-5) mg/dL 01/18/18 Range/Units 19:45 WBC (4.0-11.0) th/mm3 RBC (4.50-5.90) mil/mm3 Hgb (13.0-17.0) gm/dL Hct (39.0-51.0) % MCV (80.0-100.0) fL MCH (27.0-34.0) pg MCHC (32.0-36.0) % RDW (11.6-17.2) % Plt Count (150-450) th/mm3 MPV (7.0-11.0) fL Neut % (Auto) (16.0-70.0) % Lymph % (Auto) (9.0-44.0) % Rosebud % (Auto) (0.0-8.0) % Eos % (Auto) (0.0-4.0) % Baso % (Auto) (0.0-2.0) % Neut # (Auto) (1.8-7.7) th/mm3 Lymph # (Auto) (1.0-4.8) th/mm3 Rosebud # (Auto) (0.0-0.9) th/mm3 Eos # (Auto) (0.0-0.4) th/mm3 Baso # (Auto) (0.0-0.2) th/mm3 WBC Differential Differential Comment PT 10.6 (9.8-11.6) sec INR 1.0 Ratio APTT 23.6 L (24.3-30.1) sec Sodium (136-145) meq/L Potassium (3.5-5.1) meq/L Chloride (98-107) meq/L Carbon Dioxide (21.0-32.0) meq/L Anion Gap (5-15) meq/L BUN (7-18) mg/dL Creatinine (0.60-1.30) mg/dL Estimated GFR (>89) mL/min Random Glucose (74-106) mg/dL Calcium (8.5-10.1) mg/dL Total Bilirubin (0.2-1.0) mg/dL AST (15-37) U/L ALT (12-78) U/L Alkaline Phosphatase (45-117) U/L Troponin I (0.02-0.05) ng/mL B-Natriuretic Peptide (0-100) pg/mL Total Protein (6.4-8.2) g/dL Albumin (3.4-5.0) g/dL Lipase (73-393) U/L Serum Alcohol (0-5) mg/dL Imaging Data Radiologist's impression: Chest X-Ray 01/18/18 19:24 CONCLUSION: Mild right lung base atelectasis. ECG Data EKG Prior to Arrival: No Attestation: I personally reviewed and interpreted this ECG as follows: Interpretation: EKG reveals sinus tachycardia with a rate of 105. First-degree AV block with GA interval 223 ms. Q-wave noted in lead III and aVF. Discharge Plan Discharge Disposition Patient Disposition: 30 Still Patient Discharge Condition Condition: Stable Discharge Details Diagnosis: Chest pain, Hx of CABG, Elevated troponin, Alcohol intoxication Physicians Team ED Provider: Sravan Nelson Primary Care Provider: Noé Shah Rxs /Orders / Referrals /Forms Prescriptions: No Action atorvastatin 40 mg Tablet 40 mg PO DAILY RF: 0 nitroglycerin [Nitrostat] 0.3 mg Tablet, Sublingual 0.3 mg SUBLINGUAL Q5-15M PRN (Reason: Chest Pain) RF: 0 clopidogrel [Plavix] 75 mg Tablet 75 mg PO DAILY RF: 0 ranitidine HCl 150 mg Tablet 150 mg PO DAILY RF: 0 benztropine 1 mg Tablet 1 mg PO DAILY RF: 0 losartan 100 mg Tablet 100 mg PO DAILY RF: 0 paroxetine mesylate 30 mg Tablet 30 mg PO DAILY RF: 0 quetiapine 400 mg Tablet 400 mg PO BID RF: 0 bupropion HCl 150 mg PO DAILY RF: 0 Discharge Instructions Patient Printed Instructions: Chest Pain (ED) Status ED Status: Admitted Observation Patient
[2018-01-18 19:59] LABS: Baso # (Auto) 0.1 th/mm3 (0.0-0.2); Baso % (Auto) 1.4 % (0.0-2.0); Eos # (Auto) 0.1 th/mm3 (0.0-0.4); Eos % (Auto) 1.1 % (0.0-4.0); Hematocrit 39.8 % (39.0-51.0); Hemoglobin 14.2 gm/dL (13.0-17.0); Lymph # (Auto) 1.7 th/mm3 (1.0-4.8); Lymph % (Auto) 18.6 % (9.0-44.0); Mean Corpuscular HGB Conc 35.6 % (32.0-36.0); Mean Corpuscular Hemoglobin 34.1 pg (27.0-34.0); Mean Corpuscular Volume 95.7 fL (80.0-100.0); Mean Platelet Volume 8.3 fL (7.0-11.0); Mono # (Auto) 0.6 th/mm3 (0.0-0.9); Mono % (Auto) 6.4 % (0.0-8.0); Neut # (Auto) 6.6 th/mm3 (1.8-7.7); Neut % (Auto) 72.5 % (16.0-70.0); Platelet Count 324 th/mm3 (150-450); Red Blood Count 4.16 mil/mm3 (4.50-5.90); Red Cell Distribution Width 14.7 % (11.6-17.2)
[2018-01-18] MEDS ORDERED: Sodium Chlor 0.9% Inj 500 ML IV.SIG SCH (20:00)
--- NOTE | 2018-01-18 20:02 | XR ---
EXAM DATE: 01/18/2018 7:58 PM EDT AGE/SEX: 53 years / Male INDICATIONS: Chest pain. CLINICAL DATA: This is the patient's initial encounter. Patient reports that signs and symptoms have been present for 1 day and indicates a pain score of 4/10. MEDICAL/SURGICAL HISTORY: None. None. COMPARISON: [facility] [place], CHEST SINGLE AP, 10/24/2017. . FINDINGS: Slight cardiomegaly seen. Lungs are clear except for mild atelectasis right lung base. Ther e is evidence for prior median sternotomy. Left subclavian pacer wires are present with tips in the right atrium and right ventricle. CONCLUSION: Mild right lung base atelectasis. Electronically signed by: Shelia Whelan MD 01/18/2018 8:01 PM EDT
[2018-01-18 20:03] LABS: Activated Partial Thrombo Time 23.6 sec (24.3-30.1); Prothrombin Time 10.6 sec (9.8-11.6)
[2018-01-18 20:16] LABS: Anion Gap 13 meq/L (5-15); Aspartate Aminotransferase 24 U/L (15-37); Blood Urea Nitrogen 8 mg/dL (7-18); Calcium 8.1 mg/dL (8.5-10.1); Carbon Dioxide 20.4 meq/L (21.0-32.0); Chloride 108 meq/L (98-107); Glomerular Filtration Rate 57 mL/min (>89); Glucose,Random 90 mg/dL (74-106); Potassium 3.6 meq/L (3.5-5.1); Sodium 141 meq/L (136-145)
[2018-01-18 20:17] LABS: Lipase 98 U/L (73-393)
[2018-01-18 20:22] LABS: Alanine Aminotransferase 29 U/L (12-78); Alkaline Phosphatase 73 U/L (45-117); Total Protein 7.4 g/dL (6.4-8.2); Troponin I 0.07 ng/mL (0.02-0.05)
[2018-01-18 20:25] LABS: Alcohol 178 mg/dL (0-5)
[2018-01-18] MEDS ORDERED: Isosorbide Mononitrate 60 MG ER 24HR Tablet (Imdur) PO ONE (20:57)
[2018-01-18] MEDS ORDERED: Bisacodyl 10 MG Supp RECTAL PRN (21:00)
[2018-01-18] MEDS ORDERED: QUETIAPINE 400 MG PO SCH (21:00)
--- NOTE | 2018-01-18 21:02 | P.HPIM ---
History of Present Illness Primary Care Physician: Noé Shah History of Present Illness: This is a 53-year-old male with PMH of HTN, Hyperlipidemia, CAD s/p CABG, h/o Pacemaker, CHF (Echo 10/27/17 W/ EF 25-30%), Bipolar Disorder and Tobacco Abuse who presented to the ER for c/o chest pain started earlier this afternoon. States he was on his sailboat fishing for catfish when he had sudden onset left- sided chest pain. Pain is severe, 10/10, radiating to left shoulder. S/p NTG by EMS w/ minimal improvement. Previous admit 10/25/17 for STEMI, s/p Cardiac Cath by Dr. Arevalo 10/25/17 w/ no easily approachable culprit lesion, EF 25-30% at that time, pt declined both Defibrillator and LifeVest. States he follows w/ Dr. Ogden as outpatient, last seen 1mo ago, pt now agreeable to Defibrillator placement. On arrival, BP 150/66, HR 100, O2 sat 98% on RA, Afebrile. CBC unremarkable. INR 1.0. Creatinine 1.32, previously 1.29 on 10/28/17. Alcohol 178. CXR w/ mild right lung base atelectasis. - Diagnosis (1) Chest pain (2) Elevated troponin (3) CHF (congestive heart failure) (4) Tobacco abuse (5) Bipolar disorder Review of Systems PAST FAMILY HISTORY: Reviewed. No h/o DM or CAD All other systems reviewed negative except as stated in HPI [facility] - History History Provided By: Patient - Medical History Medical History: Medical History (Last Updated 01/18/18 @ 19:20 by Diane Shepherd) Depression (Acute) Heartburn (Acute) GERD (gastroesophageal reflux disease) (Acute) Myocardial infarction (Acute) High cholesterol (Acute) High triglycerides (Acute) Hypertension (Acute) Chest pain (Acute) - Surgical History Surgical History: Surgical History (Last Updated 01/18/18 @ 19:20 by Diane Shepherd) Hx of CABG (Acute) Hx of cardiac cath (Acute) - Tobacco History Second Hand Smoke Exposure: Yes Tobacco Use In Past 30 Days: Yes Smoking Status: Current every day smoker Tobacco Type: Cigarettes - Alcohol History How Often Do You Have a Drink Containing Alcohol: 4 or more times a week - Substance Use History Substance History: No History of Abuse - Travel History Recent Travel in the [place] Within the Last 8 Weeks: No Recent Travel Out of the Country Within the Last 8 Weeks: No - Immunization History Tetanus Immunization: <5 Years Hx Influenza Vaccine This Season: Yes Medications and Allergies Active Medications: Active Medications Sodium Chloride (Ns Inj) 500 mls @ 0 mls/hr IV.SIG BOLUS GEOFF Sodium Chloride (Ns Flush) 2 ml IV.FLUSH UNSCH PRN PRN Reason: FLUSH AFTER USING IV ACCESS Allergies Allergy/AdvReac Type Severity Reaction Status Date / Time No Known Allergies Allergy Unknown Uncoded 10/24/17 00:36 Home Medications Medication Instructions Recorded Confirmed Type atorvastatin 40 mg PO DAILY 01/18/18 01/18/18 History benztropine 1 mg PO DAILY 01/18/18 01/18/18 History bupropion HCl 150 mg PO DAILY 01/18/18 01/18/18 History clopidogrel [Plavix] 75 mg PO DAILY 01/18/18 01/18/18 History losartan 100 mg PO DAILY 01/18/18 01/18/18 History nitroglycerin [Nitrostat] 0.3 mg SUBLINGUAL Q5-15M PRN 01/18/18 01/18/18 History paroxetine mesylate 30 mg PO DAILY 01/18/18 01/18/18 History quetiapine 400 mg PO BID 01/18/18 01/18/18 History ranitidine HCl 150 mg PO DAILY 01/18/18 01/18/18 History Exam Vital signs: Vital Signs 01/18/18 19:07 01/18/18 19:15 01/18/18 20:22 Temperature 98.2 F 98.2 F Pulse Rate 107 H 100 H Respiratory Rate 20 20 20 Blood Pressure 118/67 115/66 Pulse Oximetry 98 98 01/18/18 20:27 Temperature Pulse Rate 100 H Respiratory Rate 20 Blood Pressure 160/70 H Pulse Oximetry 98 Intake & Output 01/18/18 01/18/18 01/19/18 06:59 18:59 06:59 Weight 90.718 kg Narrative: PE: GENERAL: Middle-aged white male in no acute distress, mildly intoxicated SKIN: Focused skin assessment warm and dry. HEENT: PERRLA, EOMI. No scleral icterus or conjunctival pallor. No lid lag or facial droop. CARDIOVASCULAR: Regular rate and rhythm. No obvious murmurs to auscultation. No chest tenderness to palpation. RESPIRATORY: No obvious rhonchi or wheezing. Clear to auscultation. Breath sounds equal bilaterally. GASTROINTESTINAL: Abdomen soft, non-tender, nondistended. BS normal. MUSCULOSKELETAL: Extremities without clubbing, cyanosis, or edema. No obvious deformities. NEUROLOGICAL: Awake, alert and oriented x4. No focal neurologic deficits. Moving both upper and lower extremities spontaneously. PSYCHIATRIC: Appropriate mood and affect. Insight and judgment normal. Results - Labs CBC & Chem 7: 01/18/18 19:45 01/18/18 19:45 Labs: Short CBC 01/18/18 Range/Units 19:45 WBC 9.0 (4.0-11.0) th/mm3 Hgb 14.2 (13.0-17.0) gm/dL Hct 39.8 (39.0-51.0) % Plt Count 324 (150-450) th/mm3 BMP 01/18/18 19:45 Sodium 141 Potassium 3.6 Chloride 108 H Carbon Dioxide 20.4 L BUN 8 Creatinine 1.32 H Calcium 8.1 L Cardiac Enzymes 01/18/18 Range/Units 19:45 Troponin I 0.07 H (0.02-0.05) ng/mL Liver Function 01/18/18 Range/Units 19:45 Total Bilirubin 0.3 (0.2-1.0) mg/dL AST 24 (15-37) U/L ALT 29 (12-78) U/L Alkaline Phosphatase 73 (45-117) U/L Albumin 4.0 (3.4-5.0) g/dL - Imaging Impressions Chest X-Ray 01/18/18 19:24 CONCLUSION: Mild right lung base atelectasis. Caprini VTE Risk Assessment Caprini VTE Risk Assessment: No/Low Risk (score <= 1) Caprini Risk Assessment Model: Point Value = 1 Point Value = 2 Point Value = 3 Point Value = 5 Age 41-60 Minor surgery BMI > 25 kg/m2 Swollen legs Varicose veins or History of unexplained or recurrent spontaneous Oral contraceptives or hormone replacement Sepsis (< 1 month) Serious lung disease, including pneumonia (< 1 month) Abnormal pulmonary function Acute myocardial infarction Congestive heart failure (< 1 month) History of inflammatory bowel disease Medical patient at bed rest Age 61-74 Arthroscopic surgery Major open surgery (> 45 min) Laparoscopic surgery (> 45 min) Malignancy Confined to bed (> 72 hours) Immobilizing plaster cast Central venous access Age >= 75 History of VTE Family history of VTE Factor V Leiden Prothrombin [id number] Lupus anticoagulant Anticardiolipin antibodies Elevated serum homocysteine Heparin-induced thrombocytopenia Other congenital or acquired thrombophilia Stroke (< 1 month) Elective arthroplasty Hip, pelvis, or leg fracture Acute spinal cord injury (< 1 month) Prophylaxis Regimen: Total Risk Factor Score Risk Level Prophylaxis Regimen 0-1 Low Early ambulation 2 Moderate Order ONE of the following: *Sequential Compression Device (SCD) *Heparin 5000 units SQ BID 3-4 Higher Order ONE of the following medications: *Heparin 5000 units SQ TID *Enoxaparin/Lovenox 40 mg SQ daily (WT < 150 kg, CrCl > 30 mL/min) *Enoxaparin/Lovenox 30 mg SQ daily (WT < 150 kg, CrCl > 10-29 mL/min) *Enoxaparin/Lovenox 30 mg SQ BID (WT < 150 kg, CrCl > 30 mL/min) AND/OR *Sequential Compression Device (SCD) 5 or more Highest Order ONE of the following medications: *Heparin 5000 units SQ TID (Preferred with Epidurals) *Enoxaparin/Lovenox 40 mg SQ daily (WT < 150 kg, CrCl > 30 mL/min) *Enoxaparin/Lovenox 30 mg SQ daily (WT < 150 kg, CrCl > 10-29 mL/min) *Enoxaparin/Lovenox 30 mg SQ BID (WT < 150 kg, CrCl > 30 mL/min) AND *Sequential Compression Device (SCD) Assessment and Plan - Assessment (1) Chest pain Code(s): R07.9 - Chest pain, unspecified Status: Acute (2) Elevated troponin Code(s): R74.8 - Abnormal levels of other serum enzymes Status: Acute (3) CHF (congestive heart failure) Code(s): I50.9 - Heart failure, unspecified Status: Acute (4) Tobacco abuse Code(s): Z72.0 - Tobacco use Status: Acute (5) Bipolar disorder Code(s): F31.9 - Bipolar disorder, unspecified Status: Acute - Plan A/P: 1. Chest Pain: r/o ACS, h/o extensive cardiac disease, Cardiac Cath 10/25/[address] Arevalo w/ no easily approachable culprit lesion and recommendation for aggressive medical management, now w/ ongoing chest pain. NTG/Morphine prn. Check serial cardiac enzymes, Imdur, Ranexa, ASA, Statin, B-norma. 2. Elevated Trop: Trop 0.06, admit for further cardiac work up, telemetry, check serial cardiac enzymes. Consult Cardiology for further eval. 3. CHF: Echo 10/27/17 w/ EF 25-30%, has declined Defibrillator and LifeVest in the past, now agreeable to Defibrillator placement. Follows w/ Dr. Ogden as outpatient, will consult Cardiology for further eval/intervention. 4. Tobacco Abuse: Pt counselled. Ativan prn if needed. No NicoDerm to avoid vasoconstriction. 5. Bipolar Disorder: Chronic. Resume home medications. 6. DVT Prophylaxis: SCD/Teds 7. Social work for d/c planning as needed. 8. Case discussed w/ ER physician at length, labs/records/imaging reviewed by me. (1) Chest pain Qualifiers: Chest pain type: chest pain due to myocardial ischemia Ischemic chest pain type: stable angina pectoris Qualified Code(s): I20.8 - Other forms of angina pectoris
[2018-01-18 23:06] LABS: CKMB Percent 0.4 % (0.0-4.0); Creatine Kinase MB 1.5 ng/mL (0.5-3.6)
[2018-01-18] MEDS: Ranolazine 500 MG 12HR ER Tablet PO SCH (23:08)
[2018-01-18] MEDS: Senna/Docusate Sodium 8.6/50 MG Tablet PO SCH (23:08)
[2018-01-19 01:51] LABS: Baso # (Auto) 0.1 th/mm3 (0.0-0.2); Baso % (Auto) 1.4 % (0.0-2.0); Eos # (Auto) 0.3 th/mm3 (0.0-0.4); Eos % (Auto) 4.1 % (0.0-4.0); Hematocrit 38.3 % (39.0-51.0); Lymph # (Auto) 2.6 th/mm3 (1.0-4.8); Mean Corpuscular Hemoglobin 34.5 pg (27.0-34.0); Mean Corpuscular Volume 94.4 fL (80.0-100.0); Mono # (Auto) 0.7 th/mm3 (0.0-0.9); Mono % (Auto) 8.7 % (0.0-8.0); Neut # (Auto) 3.9 th/mm3 (1.8-7.7); Neut % (Auto) 51.8 % (16.0-70.0); Platelet Count 314 th/mm3 (150-450); Red Blood Count 4.05 mil/mm3 (4.50-5.90); Red Cell Distribution Width 14.6 % (11.6-17.2); White Blood Count 7.6 th/mm3 (4.0-11.0)
[2018-01-19 02:00] LABS: Mean Corpuscular HGB Conc 36.5 % (32.0-36.0)
[2018-01-19 02:11] LABS: Alanine Aminotransferase 27 U/L (12-78); Albumin 3.6 g/dL (3.4-5.0); Anion Gap 15 meq/L (5-15); Aspartate Aminotransferase 17 U/L (15-37); Blood Urea Nitrogen 8 mg/dL (7-18); Calcium 7.8 mg/dL (8.5-10.1); Carbon Dioxide 22.4 meq/L (21.0-32.0); Chloride 109 meq/L (98-107); Glomerular Filtration Rate 61 mL/min (>89); Glucose,Random 88 mg/dL (74-106); Potassium 3.8 meq/L (3.5-5.1); Sodium 146 meq/L (136-145)
[2018-01-19 02:15] LABS: Alkaline Phosphatase 68 U/L (45-117); Total Protein 7.1 g/dL (6.4-8.2); Troponin I 0.07 ng/mL (0.02-0.05)
[2018-01-19 02:21] LABS: Platelet Estimate Normal (Normal); Platelet Morphology Normal (Normal); Spherocytes 1+
[2018-01-19] MEDS ORDERED: Pantoprazole Inj 40 MG Vial IV.PUSH ONE (03:54)
[2018-01-19] MEDS: Isosorbide Mononitrate 60 MG ER 24HR Tablet (Imdur) PO SCH (06:35)
[2018-01-19] MEDS ORDERED: PAROXETINE MESYLATE PO SCH (09:00)
[2018-01-19] MEDS ORDERED: Non-Formulary Drug (Losartan [Losartan] 100 MG) PO SCH (09:00)
[2018-01-19] MEDS ORDERED: BUPROPION HCL 150 MG PO SCH (09:00)
[2018-01-19] MEDS: Senna/Docusate Sodium 8.6/50 MG Tablet PO SCH ×2 (09:47→21:01)
[2018-01-19] MEDS: buPROPion 150 MG XL 24 HR Tablet PO SCH (09:48)
[2018-01-19] MEDS: Ranolazine 500 MG 12HR ER Tablet PO SCH ×2 (09:48→21:02)
[2018-01-19] MEDS: Morphine Inj 4 MG/ML Vial IV.PUSH PRN (09:50)
--- NOTE | 2018-01-19 09:58 | P.PNIM ---
Subjective Interval history: Follow-up for chest pain No chest pain overnight, no palpitations. Denies any shortness of breath. Afebrile. Heart rate in the 100s. Denies chronic alcohol use but had a lot to drink yesterday, [birth year]. Physical Exam Vital signs: Vital Signs 01/18/18 19:07 01/18/18 19:15 01/18/18 20:22 Temperature 98.2 F 98.2 F Pulse Rate 107 H 100 H Respiratory Rate 20 20 20 Blood Pressure 118/67 115/66 Pulse Oximetry 98 98 01/18/18 20:27 01/18/18 23:00 01/18/18 23:30 Temperature Pulse Rate 100 H 97 H Respiratory Rate 20 21 Blood Pressure 160/70 H Pulse Oximetry 98 01/19/18 00:00 01/19/18 00:44 01/19/18 07:44 Temperature 97.6 F 98.0 F Pulse Rate 101 H 97 H Respiratory Rate 20 14 Blood Pressure 86/54 L 106/58 L 119/66 Pulse Oximetry 94 L 96 01/19/18 09:02 01/19/18 09:14 Temperature Pulse Rate 95 H 102 H Respiratory Rate 16 Blood Pressure Pulse Oximetry Intake & Output 01/18/18 01/19/18 01/19/18 18:59 06:59 18:59 Output Total 520 / 520 Balance -520 / -520 Weight 90.718 kg 95.4 kg Output: Urine 520 / 520 Other: Date of Last Bowel Movement 01/17/18 Narrative: Not in distress, flushed skin Pupils equal reactive to light, nonicteric Regular rate and rhythm, no murmurs Clear breath sounds Abdomen soft, nontender, obese. No edema Alert awake and oriented 3, no focal neurologic deficits. Results - Labs CBC & Chem 7: 01/19/18 01:34 01/19/18 01:34 Laboratory Results - last 24 hr 01/18/18 01/18/18 01/18/18 19:45 19:45 19:45 WBC 9.0 RBC 4.16 L Hgb 14.2 Hct 39.8 MCV 95.7 MCH 34.1 H MCHC 35.6 RDW 14.7 Plt Count 324 MPV 8.3 Prelim Diff (Auto) Neut % (Auto) 72.5 H Lymph % (Auto) 18.6 Lea % (Auto) 6.4 Eos % (Auto) 1.1 Baso % (Auto) 1.4 Neut # (Auto) 6.6 Lymph # (Auto) 1.7 Lea # (Auto) 0.6 Eos # (Auto) 0.1 Baso # (Auto) 0.1 WBC Differential . Diff Scan Differential Comment Auto diff final Platelet Estimate Platelet Morphology Spherocytes PT INR APTT Sodium 141 Potassium 3.6 Chloride 108 H Carbon Dioxide 20.4 L Anion Gap 13 BUN 8 Creatinine 1.32 H Estimated GFR 57 L Random Glucose 90 Calcium 8.1 L Magnesium Total Bilirubin 0.3 AST 24 ALT 29 Alkaline Phosphatase 73 Total Creatine Kinase CK-MB (CK-2) CK-MB (CK-2) % Troponin I 0.07 H B-Natriuretic Peptide 75 Total Protein 7.4 Albumin 4.0 Lipase 98 Serum Alcohol 178 H 01/18/18 01/18/18 01/19/18 19:45 19:45 01:34 WBC RBC Hgb Hct MCV MCH MCHC RDW Plt Count MPV Prelim Diff (Auto) Neut % (Auto) Lymph % (Auto) Lea % (Auto) Eos % (Auto) Baso % (Auto) Neut # (Auto) Lymph # (Auto) Lea # (Auto) Eos # (Auto) Baso # (Auto) WBC Differential Diff Scan Differential Comment Platelet Estimate Platelet Morphology Spherocytes PT 10.6 INR 1.0 APTT 23.6 L Sodium 146 H Potassium 3.8 Chloride 109 H Carbon Dioxide 22.4 Anion Gap 15 BUN 8 Creatinine 1.24 Estimated GFR 61 L Random Glucose 88 Calcium 7.8 L Magnesium 2.0 Total Bilirubin 0.4 AST 17 ALT 27 Alkaline Phosphatase 68 Total Creatine Kinase 347 H CK-MB (CK-2) 1.5 CK-MB (CK-2) % 0.4 Troponin I 0.07 H B-Natriuretic Peptide Total Protein 7.1 Albumin 3.6 Lipase Serum Alcohol 01/19/18 01/19/18 01:34 07:24 WBC 7.6 RBC 4.05 L Hgb 14.0 Hct 38.3 L MCV 94.4 MCH 34.5 H MCHC 36.5 H RDW 14.6 Plt Count 314 MPV 8.0 Prelim Diff (Auto) Slide review pending Neut % (Auto) 51.8 Lymph % (Auto) 34.0 Lea % (Auto) 8.7 H Eos % (Auto) 4.1 H Baso % (Auto) 1.4 Neut # (Auto) 3.9 Lymph # (Auto) 2.6 Lea # (Auto) 0.7 Eos # (Auto) 0.3 Baso # (Auto) 0.1 WBC Differential . Diff Scan Auto diff confirmed Differential Comment . Platelet Estimate Normal Platelet Morphology Normal Spherocytes 1+ H PT INR APTT Sodium Potassium Chloride Carbon Dioxide Anion Gap BUN Creatinine Estimated GFR Random Glucose Calcium Magnesium Total Bilirubin AST ALT Alkaline Phosphatase Total Creatine Kinase CK-MB (CK-2) CK-MB (CK-2) % Troponin I 0.07 H B-Natriuretic Peptide Total Protein Albumin Lipase Serum Alcohol - Imaging Impressions Chest X-Ray 01/18/18 19:24 CONCLUSION: Mild right lung base atelectasis. Assessment and Plan - Assessment (1) Chest pain Code(s): R07.9 - Chest pain, unspecified Status: Acute (2) Elevated troponin Code(s): R74.8 - Abnormal levels of other serum enzymes Status: Acute (3) CHF (congestive heart failure) Code(s): I50.9 - Heart failure, unspecified Status: Acute (4) Tobacco abuse Code(s): Z72.0 - Tobacco use Status: Acute (5) Bipolar disorder Code(s): F31.9 - Bipolar disorder, unspecified Status: Acute - Plan This is a 53-year-old male with history of coronary artery disease status post cardiac catheterization 2 months ago presenting with chest pain Chest Pain: r/o ACS, h/o extensive cardiac disease, Cardiac Cath 10/25/[address] Arevalo w/ no easily approachable culprit lesion and recommendation for aggressive medical management, now w/ ongoing chest pain. NTG/Morphine prn. Troponin 0 0.073 , cont Imdur, Ranexa, plavix, ASA, Statin, losartan. Cardiology consulted. Initial EKG, no ischemic changes. N.p.o. at midnight, for cardiac catheterization tomorrow. CHF: Echo 10/27/17 w/ EF 25-30%, has declined Defibrillator and LifeVest in the past, now agreeable to Defibrillator placement. Follows w/ Dr. Ogden as outpatient, consulted cardiology for further eval/intervention. Rule out alcohol abuse-became intoxicated, presently appears he is starting to withdrawal, low-dose Librium as needed. Tobacco Abuse: Pt counselled. Ativan prn if needed. No NicoDerm to avoid vasoconstriction. Bipolar Disorder: Chronic. Resume home medications. DVT Prophylaxis: SCD/Teds (1) Chest pain Qualifiers: Chest pain type: chest pain due to myocardial ischemia Ischemic chest pain type: stable angina pectoris Qualified Code(s): I20.8 - Other forms of angina pectoris
--- NOTE | 2018-01-19 15:22 | MB ---
cc: Enrico Griffin MD DATE: 01/19/2018 HISTORY OF PRESENT ILLNESS: Jose G is a very pleasant 53-year-old gentleman with a history of coronary artery disease, status post CABG, recent heart catheterization by Dr. Arevalo, history of myocardial infarction, hypertension, hyperlipidemia, who presents with a chief complaint of chest pain. Otherwise, denies any fevers, chills, cough, GI or bleeding, PND, orthopnea, super dizziness. PAST MEDICAL HISTORY: Per history of present illness. ALLERGIES: NONE. SOCIAL HISTORY: He smokes cigarettes every day. Drinks alcohol 4 or more times a week. MEDICATIONS: In the hospital, 1. Lipitor 40 mg daily. 2. Librium 10 mg every 8 hours p.r.n. 3. Plavix 75 mg daily. 4. Isosorbide mononitrate 60 mg daily. 5. Losartan 100 mg daily. 6. Half inch nitro paste. 7. Paxil. 8. Seroquel. 9. Ranexa 500 mg b.i.d. 10. Aspirin 162 mg x1. PHYSICAL EXAMINATION: VITAL SIGNS: Pulse is 95, respiratory rate 16, blood pressure 119/66, temperature 98.0. GENERAL: He is alert and oriented x3, in no acute distress. NECK: Supple. No JVD or bruit. CARDIOVASCULAR: S1, S2, no murmurs, rubs or gallops. LUNGS: Clear to auscultation bilaterally. ABDOMEN: Soft, nontender, nondistended with positive bowel sounds. EXTREMITIES: Lower extremity edema. LABORATORY DATA: White count 7.6, hemoglobin 14.0, hematocrit 30.3, platelet count 314. Sodium 146, potassium 3.8, chloride 109, bicarbonate 22.4, BUN 8, creatinine 1.24. Troponin is 0.07, 0.07, 0.07. INR is 1.0. Alcohol is 178. Chest x-ray: Mild right lung base atelectasis. EKG: Sinus tachycardia at 105 beats per minute, Q-waves in the inferior leads with slight ST elevation. DIAGNOSES: 1. [id number]-[id number] myocardial infarction. 2. Tobacco abuse. 3. Cardiomyopathy. 4. Hypernatremia. PLAN AND DISCUSSION: At this point in time, I have reviewed his films from Dr. Arevalo's procedure. He does have a high-grade right PDA lesion. He is symptomatic with minor troponin elevation despite optimal medical therapy. I cannot initiate beta norma due to transient hypotension with systolic blood pressures in the 80s since admission. I have strongly advised the patient to stop smoking. Dual antiplatelet therapy is indicated due to his ACS, so will re-add Aspirin 81 mg daily for his cardiomyopathy. Again, beta norma was held due to hypotension and will continue losartan 100 mg daily. Otherwise, continue Lipitor, nitro paste and Plavix. MD JOSE Yang/sj , 12:02 PM , 12:09 PM
--- NOTE | 2018-01-19 15:24 | ECG ---
Date Performed: 01/18/2018 Time Performed: 19:28:10 PTAGE: 53 years EKG: Sinus tachycardia with first degree AV block Intraventricular conduction disturbance Possib le inferior myocardial infarction, age undetermined Nonspecific T-wave change Compared to previous tr acing, ME interval slightly shorter, heart rate is faster, otherwise no significant change. ABNORMAL RHYTHM ECG PREVIOUS TRACING : 10/28/2017 09.40 DOCTOR: Beck Marcum Interpretating Date/Time 01/19/2018 15:23:58
[2018-01-19] MEDS: Enoxaparin Inj 100 MG/ML Syringe SQ SCH (21:01)
[2018-01-20] MEDS: Isosorbide Mononitrate 60 MG ER 24HR Tablet (Imdur) PO SCH (08:04)
[2018-01-20] MEDS: Enoxaparin Inj 100 MG/ML Syringe SQ SCH (08:27)
[2018-01-20] MEDS: Ranolazine 500 MG 12HR ER Tablet PO SCH ×2 (08:30→21:55)
[2018-01-20] MEDS: Senna/Docusate Sodium 8.6/50 MG Tablet PO SCH ×2 (08:31→21:45)
[2018-01-20] MEDS: buPROPion 150 MG XL 24 HR Tablet PO SCH (08:31)
[2018-01-20] MEDS: Acetaminophen 325 MG Tablet PO PRN (08:47)
[2018-01-20] MEDS ORDERED: Iohexol 350 MG/ML 100 ML Vial (for Cath Lab) IVCONTRAST ONE (10:44)
[2018-01-20] MEDS ORDERED: Heparin/NS PF Inj 1,000 ML ONE (10:55)
[2018-01-20] MEDS ORDERED: fentaNYL Citrate Inj 100 MCG/2 ML Ampul ONE ×2 (10:55→13:10)
[2018-01-20] MEDS ORDERED: Enoxaparin Inj 100 MG/ML Syringe ONE (11:29)
[2018-01-20] MEDS ORDERED: Tirofiban Inj 12,500 MCG/250 ML PLAST..BAG ONE (11:57)
[2018-01-20] MEDS ORDERED: TIROFIBAN BOLUS IV.PUSH ONE (12:05)
[2018-01-20] MEDS ORDERED: Misc Info for Pharmacy OTHER STA (12:05)
[2018-01-20] MEDS ORDERED: Tirofiban Inj 12,500 MCG/250 ML PLAST..BAG IV.CONT SCH (13:00)
--- NOTE | 2018-01-20 14:12 | MR ---
cc: Enrico Griffin MD DATE: 01/20/2018 PROCEDURE PERFORMED: Left heart catheter, left ventriculography, coronary angiography, saphenous vein angiography, left internal mammary artery angiography, percutaneous coronary intervention with bare metal stent of the mid right patent ductus arteriosus. INDICATIONS FOR PROCEDURE: Non-STEMI, [place] [employer] class IV angina, coronary artery disease, cardiomyopathy. PROCEDURAL SUMMARY: The patient was brought to the cardiac catheterization laboratory, prepped and draped in the usual sterile fashion. 10 mL of 1% lidocaine was used to locally anesthetize the right common femoral artery. A 4-[place]ian sheath was placed in right common femoral artery. A 4-[place] JR4 and JL4 catheters were used to perform left and right coronary angiography, left ventriculography, saphenous vein angiography, WOODRUFF angiography. FINDINGS: The LV pressure is 130/2-5, ejection fraction is 35%. The right coronary artery is dominant, has mild diffuse disease in the proximal segment. There is 50% in-stent stenosis in the mid to distal segment. There appears to be a stent from the proximal mid segment to the distal segment. The right PDA has a mid 95% stenosis and a distal mid 95% stenosis. The right posterolateral artery bifurcates in the proximal segment with the more medial of the 2 branches having [id number]-[id number] diffuse disease throughout the proximal segment up to 75% angiographically to 2.5 mm vessel. The more medial branch is a 2.5 mm vessel proximally tapering to a 2 mm vessel more in the mid to distal segment. Mid segment has disease up to 60%. The vein graft to the diagonal vessel is widely patent. There is retrograde filling to a more medial branch of the diagonal vessel and then to a short segment of the mid LAD. WOODRUFF to the LAD is widely patent and appears to be a relatively small vessel; however, estimated diameter of 2.5 proximally tapering to 2.25 mid to distally. The upper matt[place] LAD is a small luminal vessel proximally 1.75, tapered to about 1 mm in the mid to distal segment beyond the graft insertion site. Left main coronary artery has a distal 60% stenosis. LAD is occluded at the ostium. The left circumflex vessel has no significant disease proximally. The first obtuse marginal vessel is a large vessel, which has an ostial 50% stenosis, mid diffuse disease up to 60% angiographically. The remainder of the AV groove circumflex vessel has no significant disease angiographically. There is a second obtuse marginal vessel, which is a small 1 mm vessel. No significant disease angiographically and then there is a third obtuse marginal vessel, which is a small to medium size vessel 2 to 2.25 mm. No significant disease angiographically. Note, the patient received 1 mg/kg of Lovenox at 8:30 a.m. Intervention started at 11:30 a.m. of the same day. A 6-Z[place]ian sheath exchanged for a 4-Zambian sheath, an additional 0.25 mg/kg of IV Lovenox was given, which is 24 mg of IV Lovenox. A 6-[place]ian JR4 guide 0.014 [place] Guidewire and a 2.0 x 10 noncompliant Euphora balloon were used to predilate the mid-PDA lesion. Three inflations up to 7 atmospheres up to 20 seconds. We then placed a 259 Integrity stent with one inflation 10 atmospheres up to 20 seconds. The stenosis went from 95% to 0% with JOSE DE JESUS-3 flow. Note, the patient's chest pain was reproduced with balloon inflation and stent deployment, completely relieved at the end of the procedure. This was the typical symptoms he was having prior to admission and during hospitalization. CONCLUSION: 1. [id number]-ngcnnzxav myocardial infarction, [place] [employer] class IV angina culprit 95% mid right patent ductus arteriosus lesion as detailed above. 2. Otherwise, ilmqlgas-ny-[id number] 3-vessel coronary artery disease in a right dominant system as detailed above. 3. Cardiomyopathy, ejection fraction 35% to 40%. The posterior wall, mid inferior ramires more severely hypokinetic and disproportionately hypokinetic than the anterior wall. 4. Successful percutaneous coronary intervention bare metal stent of the mid right PDA for 95% to 0% with JOSE DE JESUS-3 flow. 5. Patient is completely chest pain free at the end of the procedure. Note, Angio-Seal was placed at the end of the procedure. 6. We will start Aggrastat drip per protocol, reload with Plavix 600 mg daily. Continue Plavix 75 mg daily, aspirin 162 mg daily. I strongly advised the patient to stop smoking after the procedure and multiple times prior to this. We will otherwise continue to treat lipids per NCBI guidelines and treat with beta blockers and CHERY inhibitors hemodynamically and clinically as tolerated. MD JOSE Yang/ns/ll , 12:03 PM , 12:15 PM
--- NOTE | 2018-01-20 14:30 | P.PNIM ---
Subjective Interval history: Follow-up for chest pain No chest pain, only complaining of right groin discomfort. No nausea or vomiting. Not short of breath. Physical Exam Vital signs: Vital Signs 01/19/18 16:57 01/19/18 19:43 01/19/18 23:27 Temperature 98.4 F 98.2 F 98.4 F Pulse Rate 87 95 H 88 Respiratory Rate 16 16 17 Blood Pressure 119/69 114/55 L 131/73 Pulse Oximetry 94 L 96 97 01/20/18 00:05 01/20/18 03:39 01/20/18 07:59 Temperature 98.4 F 97.9 F Pulse Rate 88 73 86 Respiratory Rate 16 16 Blood Pressure 120/73 152/91 H Pulse Oximetry 96 95 01/20/18 08:06 Temperature Pulse Rate 93 H Respiratory Rate Blood Pressure Pulse Oximetry Intake & Output 01/19/18 01/20/18 01/20/18 18:59 06:59 18:59 Output Total 520 / 520 Balance -520 / -520 Weight 95.4 kg Output: Urine 520 / 520 Other: # Voids 2 2 Date of Last Bowel Movement 01/17/18 01/17/18 Weight On Admission 95.4 kg Narrative: Not in distress, flushed skin Pupils equal reactive to light, nonicteric Regular rate and rhythm, no murmurs Clear breath sounds Abdomen soft, nontender, obese. Right groin contraption in place, no obvious bleeding. No edema Alert awake and oriented 3, no focal neurologic deficits. Results - Labs CBC & Chem 7: 01/19/18 01:34 01/19/18 01:34 - Procedures 01/20 CONCLUSION: 1. Cwz-BQ-zshfaogya myocardial infarction, [place] Cardi[employer] Society class IV angina culprit 95% mid right patent ductus arteriosus lesion as detailed above. 2. Otherwise, yznrckcq-ev-wgsjxb 3-vessel coronary artery disease in a right dominant system as detailed above. 3. Cardiomyopathy, ejection fraction 35% to 40%. The posterior wall, mid inferior ramires more severely hypokinetic and disproportionately hypokinetic than the anterior wall. 4. Successful percutaneous coronary intervention bare metal stent of the mid right PDA for 95% to 0% with JOSE DE JESUS-3 flow. 5. Patient is completely chest pain free at the end of the procedure. Note, Angio-Seal was placed at the end of the procedure. 6. We will start Aggrastat drip per protocol, reload with Plavix 600 mg daily. Continue Plavix 75 mg daily, aspirin 162 mg daily. I strongly advised the patient to stop smoking after the procedure and multiple times prior to this. We will otherwise continue to treat lipids per NCBI guidelines and treat with beta blockers and CHERY inhibitors hemodynamically and clinically as tolerated. Assessment and Plan - Assessment (1) Chest pain Code(s): R07.9 - Chest pain, unspecified Status: Acute (2) Elevated troponin Code(s): R74.8 - Abnormal levels of other serum enzymes Status: Acute (3) CHF (congestive heart failure) Code(s): I50.9 - Heart failure, unspecified Status: Acute (4) Tobacco abuse Code(s): Z72.0 - Tobacco use Status: Acute (5) Bipolar disorder Code(s): F31.9 - Bipolar disorder, unspecified Status: Acute - Plan This is a 53-year-old male with history of coronary artery disease status post cardiac catheterization 2 months ago presenting with chest pain NSTEMI : h/o extensive cardiac disease, Cardiac Cath 10/25/[address] Arevalo w/ no easily approachable culprit lesion and recommendation for aggressive medical management, now w/ ongoing chest pain. Troponin 0 0.073 , Initial EKG, no ischemic changes. Cardiology consulted, status post cardiac catheterization, 95% stenosis right PDA, moderate to severe 2 vessel disease, ejection fraction 35-40%, status post PCI of the right PDA. Cardiology recommends to continue Plavix, aspirin 162 mg daily, smoking cessation. Continue statin, losartan, Imdur, Ranexa. CHF: Echo 10/27/17 w/ EF 25-30%, has declined Defibrillator and LifeVest in the past, now agreeable to Defibrillator placement. Cardiology following. Not in exacerbation Rule out alcohol abuse-became intoxicated, presently appears he is starting to withdrawal, low-dose Librium as needed. Tobacco Abuse: Pt counselled. Ativan prn if needed. No NicoDerm to avoid vasoconstriction. Bipolar Disorder: Chronic. Continue home medications. DVT Prophylaxis: SCD/Teds (1) Chest pain Qualifiers: Chest pain type: chest pain due to myocardial ischemia Ischemic chest pain type: stable angina pectoris Qualified Code(s): I20.8 - Other forms of angina pectoris
[2018-01-20] MEDS ORDERED: fentaNYL Citrate Inj 100 MCG/2 ML Ampul IV.PUSH ONE (14:45)
[2018-01-20] MEDS: Morphine Inj 4 MG/ML Vial IV.PUSH PRN ×2 (14:45→19:50)
--- NOTE | 2018-01-21 02:46 | CATHPROC ---
Financeit HIS Report Study Information Study Number Admission Scheduled Start Study Start [id number] Jan 18 2018 9:01PM 01/20/2018 Jan 20 2018 10:43AM [place] Service Cardiac Catheterization Admit Source Facility Department Emergency department [facility] - [employer] Application Developer Physician and Clinical Staff Initial Enrico Lopez Shape Brick Molder Ubaldo Alba,SHELBY Recorder Ranjit Soliman RCIS(BS) Scrub Rodney Feliciano,RT(R) Procedures Performed Procedure Location (Site) Vessel Name Coronary Angiograms LCA Left Coronary Coronary Angiograms RCA Right Coronary Coronary Angiograms WOODRUFF-LAD Left Coronary Coronary Angiograms SVG-DIAG Left Coronary L Heart Cath LV Gram-hand inj. LV LV Ventricle PTCA RCA Dist Right Coronary Stent RCA Dist Right Coronary Wire insertion Fem Art (right) Femoral Art Equipment Time Gas Check Pad Maker Description Size Mfg Part Number Used/Scraped [id number] 10:57 [employer] WIRE, ASAHI PROWATER 180CM 180CM Used *[id number] TRANSDUCER, TRUWAVE [id number] 10:56 WHITE MALDONADO * Used W/STOCKCOCK *[id number] *[id number] *[id number] *[id number] 11:53 DAIG/ST. RAYMUNDO MEDICAL ANGIOSEAL, FR6 VIP FR 6 Used *[id number] 11:55 DAIG/ST. RAYMUNDO MEDICAL ANGIOSEAL, FR6 VIP FR 6 Used *[id number] 10:56 Appticles BLANKET,WARM AIR CCL * Used *[id number] 10:56 Appticles PACK, CCL CUSTOM * Used *[id number] 10:56 [employer] PACER PEN, SKIN DUAL W/ RULER * Used *[id number] BALLOON, 2.5 X 12MM NC [id number] 11:32 MEDTRONIC 12MM Used EUPHORA *[id number] 11:45 MEDTRONIC STENT, 2.5 8 INTEGRITY 2.5 8 Used *[id number] 10:57 Medisas MEDICAL 30 RAÚL INDEFLATOR Used *[id number] 10:57 Medisas MEDICAL SHEATH, FR6.5 PRELUDE 11CM FR 6.5 038ACT Used *[id number] 10:56 [employer]is[employer] MEDICAL WIRE, 3MMJ .035 180CM 180CM Used *[id number] 10:56 NAMIC MANIFOLD, 4 PORT * Used *[id number] 10:56 NYCOMED OMNIPAQUE, 350 MG, 150ML 150ML [id number] Used 12:09 Marbles: [employer] SYSTEMS FEMSTOP PUMP 38732 Used [id number] 11:15 TERUMO MEDICAL SHEATH, FR4 TERUMO (10CM) FR 4 Used *[id number] Equipment Model, Serial, Lot Number and Expiration Data Description Model Number Serial Number Lot Number Expiration Date ANGIOSEAL, FR6 VIP [id number] 09-16-2018 ANGIOSEAL, FR6 VIP [id number] 06-19-2018 BALLOON, 2.5 X 12MM NC [id number] 07-25-2019 EUPHORA STENT, 2.5 8 INTEGRITY [id number] 09-11-2019 History: Current Medications Medication Dosage/Unit Route Frequency Last Date/Time Taken Statins (any) Beta John ASA LOVENOX History: Allergies Allergy Reaction No Known Allergies History: Risk Factors Family History of Hypertension Dyslipidemia Previous [place] Previous Heart Failure Premature CAD Yes Yes Yes Yes Yes Prior Valve Prior PCI Prior CABG Prior CABGDate Surgery No Yes Yes 05/20/2009 Cerebrovascular Peripheral Artery Chronic Lung On Dialysis Diabetes Disease Disease Disease No No No No No History: Symptoms/Diagnosis Selection Items Chest pain History: CV Disease Selection Items W[place] History: Stress Tests Stress or Imaging Studies Performed No History: Other Disease Selection Items HTN History: [place]/CV Data Previous Cath Date 10/25/2017 History: Other Current Smoker Packs a Day Years Used Pack Years Yes 1 34 34 Labs Hgb (g/dl) Hct (%) WBC (l/cumm) Platelets (thousands) 11.60-17.00 35.00-51.00 4.00-11.00 150.00-450.00 14.0 38 4.5 314 Glucose (mg/dl) BUN (mg/dl) Creatinine (mg/dl) BUN:Creatinine (1:x) 74.00-106.00 7.00-18.00 0.50-1.30 10.00-20.00 88 8 1.2 6.7 Na (meq/l) K (meq/l) 136.00-145.00 3.50-5.10 146 3.8 INR (PTT:PT) 0.90-1.10 1 Troponin I (ng/ml) CPK (u/l) CPK-MB (ng/ML) 0.02-0.05 26.00-308.00 0.50-3.60 0.07 341 0.4 Medication Medication Total Dose (Bolus/Oral) Medication Total Dosage/Unit 1% XYLOCAINE 20 mL AGGRASTAT BOLUS 25 meq/kg FENTANYL 50 mcg LOVENOX 0.252 mg/kg NITRO OINTMENT 2 inches PLAVIX 600 mg VERSED 2 mg Medications (Bolus/Oral) Medication Time Given Dosage/Unit Administered By Reason VERSED 01/20/2018 11:16:32 AM 1 mg Ubaldo Alba 1 mg VERSED given in lab by Ubaldo Alba RN in Right Forearm via Peripheral IV. Ordered by Enrico Nur. FENTANYL 01/20/2018 11:16:47 AM 25 mcg Ubaldo Alba 25 mcg FENTANYL given in lab by Ubaldo Alba RN in Right Forearm via Peripheral IV. Ordered by Enrico Gallardo. 1% XYLOCAINE 01/20/2018 11:19:27 AM 20 mL Enrico Griffin 20 mL 1% XYLOCAINE given in lab by Enrico Griffin in Right Groin via Subcutaneous. VERSED 01/20/2018 11:19:58 AM 1 mg Ubaldo Alba 1 mg VERSED given in lab by Ubaldo Alba RN in Right Forearm via Peripheral IV. Ordered by Enrico Nur. FENTANYL 01/20/2018 11:20:00 AM 25 mcg Ubaldo Alba 25 mcg FENTANYL given in lab by Ubaldo Alba RN in Right Forearm via Peripheral IV. Ordered by Enrico Gallardo. LOVENOX 01/20/2018 11:30:54 AM 0.252 mg/kg Ubaldo Alba 0.252 mg/kg LOVENOX given in lab by Ubaldo Alba RN in Right Forearm via Peripheral IV. Amount giv en = 24 mg. Ordered by Enrico Griffin. AGGRASTAT BOLUS 01/20/2018 12:15:31 PM 25 meq/kg Ubaldo Alba 25 meq/kg AGGRASTAT BOLUS given in lab by Ubaldo Alba RN via Peripheral IV. Amount given = 2385 m eq. Ordered by Enrico Griffin. NITRO OINTMENT 01/20/2018 12:20:27 PM 2 inches Ubaldo Alba 2 inches NITRO OINTMENT given in lab by Ubaldo Alba RN in Left shoulder via Peripheral IV. Ordere d by Enrico Griffin. PLAVIX 01/20/2018 12:22:46 PM 600 mg Ubaldo Alba 600 mg PLAVIX given in lab by Ubaldo Alba, SHELBY via Oral. Ordered by Enrico Griffin. Medication (Drip) Medication Time Given Dosage/Unit Concentration/Unit Diluent (ml) Solution AGGRASTAT DRIP 01/20/2018 12:21:33 PM 0.14 mcg/kg/min 12.5 mg 250 NaCl .9 0.14 mcg/kg/min AGGRASTAT DRIP given in lab by Ubaldo Alba RN in Right Forearm via Peripheral IV. Pump/Drip Flow = 16 ml/hr using NaCl .9 with a concentration of 12.5 mg in 250 ml. Ordered by Enrico Griffin. IV Solutions 01/20/2018 10:44:12 AM 0 mL (IV) 500 NaCl .9 Patient arrived on IV Solutions given by Enrico Griffin in Right Forearm via Peripheral IV. Pump/Dr ip Flow = 20 ml/hr using NaCl .9. Ordered by Enrico Griffin. Initial Case Assessment Cardiovascular HR Rhythm NIBP Chest Pain 79 nsr 158/102 0 Edema Present Skin color Skin None Normal Warm Dry Circulatory - Right Pulses Dorsalis Pedis Femoral 2 2 Scale (0,1,2,3,4,d) Circulatory - Left Pulses Dorsalis Pedis Femoral 2 2 Scale (0,1,2,3,4,d) Neurological State Oriented to time-place- Alert Moves all extremities person Respiration - General Respiration Rate SpO2 (%) (B/min) 15 97 Chronological Log Time Study Chronological Log 10:44:04 Patient arrived via Bed. 10:44:05 Patient Name, D.O.B, / Armband Verified By R.N. 10:44:05 Consent signed by the physician and the patient and verified by the [employer] Application Developer staff. 10:44:06 Pre-op and post- op instructions given; patient acknowledges understanding of instruction s. 10:44:06 Verbal Stimulation=2 Physical Stimulation=2 Airway=2 Respiration=2 TOTAL=8. (0=absent, 1= limited, 2=present) 10:44:07 Presedation assessment performed by [employer] Application Developer RN. 10:44:08 Immediate Presedation assesment performed by physician. 10:44:09 Patient has been NPO for More than 6Hrs. 10:44:10 Skin Breakdown-none present per patient. 10:44:10 Patient Warmer Placed on the Table. 10:44:11 Gill Prominences Protected 10:44:11 A # 20 IV was noted in the Forearm (right). Grade = 0 Patient arrived on IV Solutions given by Enrico Griffin in Right Forearm via Peripheral IV. P ump/Drip Flow = 20 10:44:12 ml/hr using NaCl .9. Ordered by Enrico Griffin. 10:44:13 History and physical on the chart or being dictated. 10:50:40 Reference ECG taken Vitals capture started with the following parameters, Patient=Adult, Interval=5 min, Initial Pr qnjafq=129 mmHg, 10:53:49 Deflation Rate=5 mmHg, Cuff placed on Left Arm 10:54:30 HR=79 bpm, HLMB=466/102 mmhg, SpO2=95.0 %, Resp=8 B/min, Pain=0, Reji=10, Lara=2 Assessment: Initial Case, HR=79 BPM, Rhythm=nsr, TDCD=038/102 mmhg, Chest Pain=0, Edema=None, Color=Normal, Skin = Warm, Dry Right Pulses: [place] Ped=2, Femoral=2 10:57:16 Left Pulses: [place] Ped=2, Femoral=2 Neurological: State=Alert, Ox3, KITCHEN Respiration: Resp=15 B/min, SpO2=97 % 10:59:31 HR=81 bpm, AYFI=703/108 mmhg, SpO2=96.0 %, Resp=14 B/min, Pain=0, Reji=10, Lara=2 10:59:57 Reference ECG taken 11:04:30 HR=84 bpm, PXAF=509/101 mmhg, SpO2=96.0 %, Resp=11 B/min, Pain=0, Reji=10, Lara=2 11:07:55 Right groin prepped with 2% chlorhexidine, and draped after a 3 min. waiting time. 11:07:56 MD paged 11:07:57 MD responded 11:09:31 HR=79 bpm, IKPB=992/103 mmhg, SpO2=96.0 %, Resp=17 B/min, Pain=0, Reji=10, Lara=2 11:09:54 Pressure channel 1 zeroed. 11:12:15 MD arrived. 11:12:18 Contrast Scanned 11::18 Immediate Presedation assesment performed by physician. 11:14:28 HR=82 bpm, PJVX=557/113 mmhg, SpO2=95.0 %, Resp=8 B/min, Pain=0, Reji=10, Lara=2 Time Out. Correct patient, correct procedure, correct physician, labs, allergies, and equipment verified with oil laboratory analyst 11:16:30 team present. Fire risk assesment completed (see hard stop sheet for coding). Time Out Conc urred by MD and individual staff in procedure. 11:16:32 1 mg VERSED given in lab by Ubaldo Alba, SHELBY in Right Forearm via Peripheral IV. Ordered by Enrico Griffin. 11:16:47 25 mcg FENTANYL given in lab by Ubaldo Alba RN in Right Forearm via Peripheral IV. Orde red by Enrico Griffin. 11:19:27 Case Start 11:19:27 20 mL 1% XYLOCAINE given in lab by Enrico Griffin in Right Groin via Subcutaneous. 11:19:31 HR=84 bpm, ZJUG=941/112 mmhg, SpO2=92.0 %, Resp=15 B/min, Pain=0, Reji=10, Lara=2 11:19:58 1 mg VERSED given in lab by Ubaldo Alba, SHELBY in Right Forearm via Peripheral IV. Ordered by Enrico Grififn. 11:20:00 25 mcg FENTANYL given in lab by Ubaldo Alba, SHELBY in Right Forearm via Peripheral IV. Orde red by Enrico Griffin. 11:21:15 Access site was Right Femoral Artery. 11:21:19 A SHEATH, FR4 TERUMO (10CM) FR 4 was advanced into the Fem Art (right) using the Percutaneo us technique. A JR 4.0 INFINITI CATHETER FR 4 was advanced over a wire. OMNIPAQUE, 350 MG, 150ML 150ML was us ed for 11:21:25 injections. Recorded Pressure: LV, HR=84, Condition=Condition 1 11:22:37 (Left Ventricle) LV 135/2/7 11:22:49 The LV was manually injected with 10 cc's and visualized. OMNIPAQUE, 350 MG, 150ML 150ML us ed. Recorded Pressure: LV, Ao, HR=88, Condition=Condition 1 11:22:58 (Left Ventricle) LV 128/7/10, (Aorta) Ao 124/87/104 11:23:19 The RCA was injected and visualized at various angles. OMNIPAQUE, 350 MG, 150ML 150ML used . 11:24:28 HR=82 bpm, NHMD=602/98 mmhg, SpO2=94.0 %, Resp=11 B/min, Pain=0, Reji=10, Lara=2 11:24:42 The SVG-DIAG was injected and visualized at various angles. OMNIPAQUE, 350 MG, 150ML 150ML used. 11:25:14 The WOODRUFF-LAD was injected and visualized at various angles. OMNIPAQUE, 350 MG, 150ML 150ML used. After removing the current catheter a JL 4.0 INFINITI CATHETER FR 4 was advanced over a WIRE, 3 MMJ .035 180CM 11:26:58 180CM. 11:28:08 The LCA was injected and visualized at various angles. OMNIPAQUE, 350 MG, 150ML 150ML used . 11:28:13 Catheter was removed A SHEATH, FR6.5 PRELUDE 11CM FR 6.5 was exchanged in the Fem Art (right). This was necessary in order to 11:28:20 accomodate a larger catheter. 11:29:54 HR=82 bpm, QBOE=412/90 mmhg, SpO2=88.0 %, Resp=20 B/min, Pain=0, Reji=10, Lara=2 A JR 4.0 GUIDE CATHETER FR 6 was advanced over a wire. OMNIPAQUE, 350 MG, 150ML 150ML was used for 11:30:44 injections. 0.252 mg/kg LOVENOX given in lab by Ubaldo Alba, RN in Right Forearm via Peripheral IV. Amou nt given = 24 mg. 11:30:54 Ordered by Enrico Griffin. 11:31:27 A WIRE, ASAHI PROWATER 180CM 180CM was inserted via Fem Art (right). A BALLOON, 2.5 X 12MM NC EUPHORA 12MM was inserted over WIRE, ASAHI PROWATER 180CM 180CM via th e Fem 11:33:33 Art (right). 11:34:28 HR=90 bpm, MKJJ=056/96 mmhg, SpO2=98.0 %, Resp=10 B/min, Pain=0, Reji=10, Lara=2 11:39:25 HR=77 bpm, NFHN=886/100 mmhg, SpO2=92 %, Resp=11 B/min, Pain=0, Reji=10, Lara=2 11:39:33 Interventional wire has crossed the lesion A BALLOON, 2.5 X 12MM NC EUPHORA 12MM over a WIRE, ASAHI PROWATER 180CM 180CM in the RCA Dist w as 11:41:43 inflated using a 30 RAÚL INDEFLATOR at 5 raúl for 10 sec. A BALLOON, 2.5 X 12MM NC EUPHORA 12MM over a WIRE, ASAHI PROWATER 180CM 180CM in the RCA Dist w as 11:42:32 inflated using a 30 RAÚL INDEFLATOR at 6 raúl for 10 sec. A BALLOON, 2.5 X 12MM NC EUPHORA 12MM over a WIRE, ASAHI PROWATER 180CM 180CM in the RCA Dist w as 11:43:01 inflated using a 30 RAÚL INDEFLATOR at 5 raúl for 10 sec. A BALLOON, 2.5 X 12MM NC EUPHORA 12MM over a WIRE, ASAHI PROWATER 180CM 180CM in the RCA Dist w as 11:43:38 inflated using a 30 RAÚL INDEFLATOR at 7 raúl for 10 sec. 11:44:30 HR=72 bpm, STNN=134/98 mmhg, SpO2=92.0 %, Resp=11 B/min, Pain=0, Reji=10, Lara=2 11:44:33 Balloon Removed. An STENT, 2.5 8 INTEGRITY 2.5 8 Bare Metal Stent was inserted through a JR 4.0 GUIDE CATHETER F R 6 over a 11:44:50 WIRE, ASAHI PROWATER 180CM 180CM. A STENT, 2.5 8 INTEGRITY 2.5 8 was deployed using a 30 RAÚL INDEFLATOR at 10 atmospheres for 10 seconds in the 11:47:04 RCA Dist. 11:47:14 Delivery device removed 11:47:57 Wire removed 11:48:14 Catheter was removed 11:48:33 Case End (Physician broke scrub) 11:48:39 An injection in the Fem Art (right) was made through the SHEATH, FR6.5 PRELUDE 11CM FR 6.5. 11:50:00 ANGIOSEAL, FR6 VIP FR 6 placement in the Fem Art (right). FAILED. 11:50:10 HR=91 bpm, SMXQ=500/106 mmhg, SpO2=98 %, Resp=21 B/min, Pain=0, Reji=10, Lara=2 11:54:32 VFZX=516/106 mmhg, SpO2=97.0 %, Resp=9 B/min, Pain=0, Reji=10, Lara=2 11:59:34 HR=82 bpm, AONA=953/109 mmhg, SpO2=95.0 %, Resp=15 B/min, Pain=4, Reji=10, Lara=2 12:04:35 SHMJ=296/102 mmhg, SpO2=98.0 %, Pain=4, Reji=10, Lara=2 12:09:46 Vitals capture stopped. 25 meq/kg AGGRASTAT BOLUS given in lab by Ubaldo Alba, RN via Peripheral IV. Amount given = 2385 meq. Ordered 12:15:31 by Enrico Griffin. 2 inches NITRO OINTMENT given in lab by Ubaldo Alba, RN in Left shoulder via Peripheral IV. Ordered by Elias, 12:20:27 Enrico. 12:20:54 Femostop applied to Right Femoral site. 12:21:09 Catheter(s) removed without difficulty 12:21:13 Sterile dressing applied to site 12:21:13 No case complications noted. 12:21:14 Cine recording checked. 12:21:15 Holding Area notified of successful intervention. 12:21:15 Bedside Report will be given. 12:21:16 Implantable Device card placed in patient's chart. 12:21:19 A Left Heart Cath was performed. 0.14 mcg/kg/min AGGRASTAT DRIP given in lab by Ubaldo Alba, RN in Right Forearm via Periphe ral IV. Pump/Drip 12:21:33 Flow = 16 ml/hr using NaCl .9 with a concentration of 12.5 mg in 250 ml. Ordered by Enrico Griffin. 12:22:07 [facility] 12[facility]22[facility] 600 mg PLAVIX given in lab by Ubaldo Alba, RN via Oral. Ordered by Enrico Griffin. End Study - Contrast Media Used In Study Contrast Total Opened (mL) Total Used (mL) Total Wasted (mL) Omnipaque 190 190 0 End Study - Maximum Contrast Load Max Contrast Load (mL) 397.5 End Study - Radiation Exposure Fluoro Time (minutes) 12.0 End Study - Patient Disposition Complications Transferred To Interventional Outcome No Telemetry Bed successful
[2018-01-21 05:22] LABS: Baso # (Auto) 0.1 th/mm3 (0.0-0.2); Baso % (Auto) 0.7 % (0.0-2.0); Eos # (Auto) 0.1 th/mm3 (0.0-0.4); Eos % (Auto) 1.4 % (0.0-4.0); Hematocrit 39.4 % (39.0-51.0); Lymph # (Auto) 2.1 th/mm3 (1.0-4.8); Lymph % (Auto) 21.1 % (9.0-44.0); Mean Corpuscular HGB Conc 35.6 % (32.0-36.0); Mean Corpuscular Hemoglobin 34.4 pg (27.0-34.0); Mean Corpuscular Volume 96.6 fL (80.0-100.0); Mono # (Auto) 0.8 th/mm3 (0.0-0.9); Mono % (Auto) 8.3 % (0.0-8.0); Neut # (Auto) 6.9 th/mm3 (1.8-7.7); Neut % (Auto) 68.5 % (16.0-70.0); Platelet Count 333 th/mm3 (150-450); Red Blood Count 4.08 mil/mm3 (4.50-5.90); Red Cell Distribution Width 14.7 % (11.6-17.2); White Blood Count 10.1 th/mm3 (4.0-11.0)
--- NOTE | 2018-01-21 05:29 | P.PNCA ---
Subjective Interval history: asleep in nad Physical Exam Vital signs: Vital Signs 01/20/18 07:59 01/20/18 08:06 01/20/18 12:06 Temperature 97.9 F 98 F Pulse Rate 86 93 H 71 Respiratory Rate 16 16 Blood Pressure 152/91 H 168/99 H Pulse Oximetry 95 100 01/20/18 16:00 01/20/18 16:49 01/20/18 18:47 Temperature 97.6 F Pulse Rate 75 Respiratory Rate 16 16 14 Blood Pressure 135/96 H Pulse Oximetry 100 01/20/18 20:00 01/21/18 00:00 01/21/18 04:00 Temperature 98 F 98.4 F 98.3 F Pulse Rate 95 H 77 83 Respiratory Rate 18 16 16 Blood Pressure 142/99 H 130/77 116/58 L Pulse Oximetry 100 97 99 Intake & Output 01/20/18 01/20/18 01/21/18 06:59 18:59 06:59 Intake Total 480 / 480 250 / 250 Output Total 300 / 300 Balance 180 / 180 250 / 250 Intake: IV 250 / 250 Oral 480 / 480 Output: Urine 300 / 300 Other: # Voids 2 2 Date of Last Bowel Movement 01/17/18 01/17/18 # Bowel Movements 0 Weight On Admission 95.4 kg Assessment and Plan - Plan 1.) CAD - s/p bms mid rpda, continue aspirin, plavix, ok to dc from cv standpoint,
[2018-01-21 05:47] LABS: Carbon Dioxide 22.9 meq/L (21.0-32.0); Potassium 3.8 meq/L (3.5-5.1)
[2018-01-21] MEDS: Isosorbide Mononitrate 60 MG ER 24HR Tablet (Imdur) PO SCH (06:06)
[2018-01-21 06:07] LABS: CKMB Percent 0.4 % (0.0-4.0); Creatine Kinase MB 2.7 ng/mL (0.5-3.6)
--- NOTE | 2018-01-21 09:07 | P.PNIM ---
Subjective Interval history: Follow-up for chest pain No chest pain, no shortness of breath or palpitations. However complaining of right lower extremity weakness and decreased sensation on the right. Per patient, he cannot ambulate, right lower extremity is a lot weaker compared to when before admission, sensation is also less. Still with mild right hip pain, no lower back pain. Physical Exam Vital signs: Vital Signs 01/20/18 12:06 01/20/18 16:00 01/20/18 16:49 Temperature 98 F 97.6 F Pulse Rate 71 75 Respiratory Rate 16 16 16 Blood Pressure 168/99 H 135/96 H Pulse Oximetry 100 100 01/20/18 18:47 01/20/18 20:00 01/21/18 00:00 Temperature 98 F 98.4 F Pulse Rate 95 H 77 Respiratory Rate 14 18 16 Blood Pressure 142/99 H 130/77 Pulse Oximetry 100 97 01/21/18 04:00 Temperature 98.3 F Pulse Rate 83 Respiratory Rate 16 Blood Pressure 116/58 L Pulse Oximetry 99 Intake & Output 01/20/18 01/21/18 01/21/18 18:59 06:59 18:59 Intake Total 480 / 480 560 / 560 Output Total 300 / 300 400 / 400 Balance 180 / 180 160 / 160 Weight 95 kg Intake: IV 320 / 320 Aggrastat Inj 12,500 mcg In 250 70 / 70 ml @ Per Protocol IV.CONT .[facility] Rx#:[id number] Oral 480 / 480 240 / 240 Output: Urine 300 / 300 400 / 400 Other: # Voids 2 Date of Last Bowel Movement 01/17/18 # Bowel Movements 0 0 Narrative: Not in distress, calm Pupils equal reactive to light, nonicteric Regular rate and rhythm, no murmurs Clear breath sounds Abdomen soft, nontender, obese. Right femoral pulses 2+, mildly tender, no obvious hematoma, RLE warm to touch, 2+ DP pulses No edema Alert awake and oriented 3, (+) RLE weakness, 4/5 compared to the left. Touch and pain sensation on the RLE extremely diminished, ~20% compared to 100% on the left. Negative straight leg raising on the right. No lumbar tenderness. No hip tenderness on hip flexion. No cranial nerve deficits, no facial asymmetry, speech is fluent. Bilateral upper extremities 5/5 bilaterally. Left lower extremities 5/5. Results - Labs CBC & Chem 7: 09/04/18 05:03 01/21/18 05:03 Laboratory Results - last 24 hr 01/21/18 01/21/18 05:03 05:03 WBC 10.1 RBC 4.08 L Hgb 14.0 Hct 39.4 MCV 96.6 MCH 34.4 H MCHC 35.6 RDW 14.7 Plt Count 333 MPV 8.0 Neut % (Auto) 68.5 Lymph % (Auto) 21.1 [place] % (Auto) 8.3 H Eos % (Auto) 1.4 Baso % (Auto) 0.7 Neut # (Auto) 6.9 Lymph # (Auto) 2.1 [place] # (Auto) 0.8 Eos # (Auto) 0.1 Baso # (Auto) 0.1 WBC Differential . Differential Comment Auto diff final Sodium 142 Potassium 3.8 Chloride 108 H Carbon Dioxide 22.9 Anion Gap 11 BUN 12 Creatinine 1.28 Estimated GFR 59 L Random Glucose 87 Calcium 8.0 L Total Creatine Kinase 705 H CK-MB (CK-2) 2.7 CK-MB (CK-2) % 0.4 - Procedures 01/20 CONCLUSION: 1. Gko-AW-bvztnpwvw myocardial infarction, [place] Cardiovascular Society class IV angina culprit 95% mid right patent ductus arteriosus lesion as detailed above. 2. Otherwise, gomkreqd-em-bbkwwm 3-vessel coronary artery disease in a right dominant system as detailed above. 3. Cardiomyopathy, ejection fraction 35% to 40%. The posterior wall, mid inferior ramires more severely hypokinetic and disproportionately hypokinetic than the anterior wall. 4. Successful percutaneous coronary intervention bare metal stent of the mid right PDA for 95% to 0% with JOSE DE JESUS-3 flow. 5. Patient is completely chest pain free at the end of the procedure. Note, Angio-Seal was placed at the end of the procedure. 6. We will start Aggrastat drip per protocol, reload with Plavix 600 mg daily. Continue Plavix 75 mg daily, aspirin 162 mg daily. I strongly advised the patient to stop smoking after the procedure and multiple times prior to this. We will otherwise continue to treat lipids per NCBI guidelines and treat with beta blockers and CHERY inhibitors hemodynamically and clinically as tolerated. Assessment and Plan - Assessment (1) Chest pain Code(s): R07.9 - Chest pain, unspecified Status: Acute (2) Elevated troponin Code(s): R74.8 - Abnormal levels of other serum enzymes Status: Acute (3) CHF (congestive heart failure) Code(s): I50.9 - Heart failure, unspecified Status: Acute (4) Tobacco abuse Code(s): Z72.0 - Tobacco use Status: Acute (5) Bipolar disorder Code(s): F31.9 - Bipolar disorder, unspecified Status: Acute - Plan This is a 53-year-old male with history of coronary artery disease status post cardiac catheterization 2 months ago presenting with chest pain NSTEMI : h/o extensive cardiac disease, Cardiac Cath 10/25/[address] Arevalo w/ no easily approachable culprit lesion and recommendation for aggressive medical management, now w/ ongoing chest pain. Troponin 0 0.073 , Initial EKG, no ischemic changes. Cardiology consulted, status post cardiac catheterization, 95% stenosis right PDA, moderate to severe 2 vessel disease, ejection fraction 35-40%, status post PCI of the right PDA. Cardiology recommends to continue Plavix, aspirin 162 mg daily, smoking cessation. Continue statin, losartan, Imdur, Ranexa. CHF: Echo 10/27/17 w/ EF 25-30%, has declined Defibrillator and LifeVest in the past, now agreeable to Defibrillator placement. Not in exacerbation R LE weakness and sensory deficits - ? Etiology, no lumbar pain, no hip pain on extension. Pulses are good both femoral and dorsalis pedis. Consult neurology, check MRI of the lumbar spine and right hip. Also discussed with cardiology, also recommend CTA right lower extremities. Physical therapy evaluation Rule out alcohol abuse-came in intoxicated, low-dose Librium as needed. Tobacco Abuse: Pt counselled. Ativan prn if needed. No NicoDerm to avoid vasoconstriction. Bipolar Disorder: Chronic. Continue home medications. DVT Prophylaxis: SCD/Teds (1) Chest pain Qualifiers: Chest pain type: chest pain due to myocardial ischemia Ischemic chest pain type: stable angina pectoris Qualified Code(s): I20.8 - Other forms of angina pectoris
[2018-01-21] MEDS: Acetaminophen 325 MG Tablet PO PRN (09:11)
[2018-01-21] MEDS: Ranolazine 500 MG 12HR ER Tablet PO SCH ×2 (09:11→21:49)
[2018-01-21] MEDS: Senna/Docusate Sodium 8.6/50 MG Tablet PO SCH ×2 (09:12→21:49)
[2018-01-21] MEDS: buPROPion 150 MG XL 24 HR Tablet PO SCH (09:12)
--- NOTE | 2018-01-21 13:03 | MB ---
cc: Gely Kenyon MD DATE: 01/21/2018 REASON FOR CONSULTATION: Right leg weakness post-cardiac catheterization yesterday. HISTORY OF PRESENT ILLNESS: This is a 53-year-old man who apparently came into the ED with chest pain. He has a history of NV, hyperlipidemia, hypertension, depression, bipolar, history of CABG, and cardiac catheterization in the past. Apparently, he did have a cardiac catheterization yesterday and states that they put a FemoStop on him and he started developing numbness and tingling from the thigh down to his leg where it feels weak to the point where he cannot put weight on it. He is now on aspirin and Plavix. They had him on Aggrastat yesterday. I am told that it was stopped prior to the catheterization. PHYSICAL EXAMINATION: GENERAL: He is a 53-year-old man, in no acute distress. NEUROLOGIC: Awake, alert, oriented, and fluent. HEENT: His pupils react with visual saldana full. Face symmetrical. Tongue midline. EXTREMITIES: Upper extremity does not exhibit any weakness. No drift. Lower extremity, he can lift both legs antigravity, but he is weaker on the right, at best 3+ to 4-/5 proximally and distally. Ankle strength is intact, 5/5. EHL is normal. Cannot elicit any reflexes in his lower extremities, 1+ upper toe withdraws bilaterally. He can feel vibration and position sense, but has difficulty with temperature and light touch on the right leg compared to the left from the groin area downward. Straight leg test is negative. Looking at the inguinal region where the catheter was done, he has some mild bruising. I do not see any significant hematoma formation. Gait cannot be assessed. Cerebellar testing was normal. LABORATORY DATA: Reviewed. IMAGING: There is no recent imaging except for chest x-ray, which was mild right lung base atelectasis. ASSESSMENT AND PLAN: Right lower extremity weakness may be due to nerve impingement causing some sensory deficit and some mild weakness over the right lower extremity. There may be some swelling in the area, less likely hematoma. Would recommend getting a CT of the pelvis initially without contrast to see if there is a hematoma formation. Continuing physical therapy. Certainly gabapentin, low dose, can be used at bedtime if the paresthesias and tingling are bothersome. An EMG/nerve conduction study can be done in about 3 weeks. At this point, it would be useless to do it. Will not show much change. Continue current care per other consultants. I will go ahead and order a CT of the pelvis. If there is any change, further recommendations will be made; but, he will need an outpatient EMG. Hopefully, it will continue to improve on a daily basis. MD LITO Langston/ts , 12:43 PM , 12:50 PM
[2018-01-21] MEDS ORDERED: Gabapentin 100 MG Capsule PO PRN (13:46)
--- NOTE | 2018-01-21 18:27 | CT ---
EXAM DATE: 01/21/2018 4:52 PM EDT AGE/SEX: 53 years / Male INDICATIONS: Cardiac cath yesterday. Numbness, tingling and weakness in right leg ever since. Evalu ate for compression of vessel. CLINICAL DATA: This is the patient's initial encounter. Patient reports that signs and symptoms have been present for 1 day and indicates a pain score of 4/10. MEDICAL/SURGICAL HISTORY: Myocardial infarction. Hypertension. Gastroesophageal reflux disease. C ABG. RADIATION DOSE: 11.19 CTDI (mGy) COMPARISON: . TECHNIQUE: Volumetric scanning was performed using a multi-row detector CT scanner during bolus infu jacinda of 100 ml Omnipaque 350 (iohexol) nonionic water-soluble contrast as a single exam dose. The data was post processed with a variety of visualization algorithms including full volume maximum inte nsity projection, multi-planar sliding thin slab reformation, curved planar reformation, and surface rendering techniques. Using automated exposure control and adjustment of the mA and/or kV according to patient size, radiation dose was kept as low as reasonably achievable to obtain optimal diagnostic quality images. DICOM format image data is available electronically for review and comparison. FINDINGS: Abdominal Aorta: The lumen is smooth without significant narrowing or aneurysmal dilation. The pr oximal celiac and superior mesenteric arteries are patent and normal in diameter. There are 2 right renal arteries and a solitary left renal artery. Bifurcation: Normal. Right Pelvis: The right common iliac, internal iliac, and external iliac vessels are patent without luminal irregularity. Left Pelvis: The left common iliac, internal iliac, and external iliac vessels are patent and withou t luminal irregularity. Right Thigh: The superficial femoral and profunda vessels are patent without luminal irregularity. Left Thigh: The superficial femoral and profunda vessels are patent without luminal irregularity. Right Knee: The distal femoral and popliteal arteries are patent without luminal irregularity. Left Knee: The distal femoral and popliteal arteries are patent without luminal irregularity. Right Leg: The trifurcation is intact. Left Leg: The trifurcation is intact. Miscellaneous: Small hiatal hernia is noted. Scattered uncomplicated colonic diverticulosis is noted. The prostate is mildly prominent. There is a lower pole left renal cyst measuring 17 mm. Circumaorti c left renal vein is noted. CONCLUSION: 1. No significant stenosis or occlusion of the visualized arterial vascular system. 2. Uncomplicated colonic diverticulosis. 3. Mildly prominent prostate. 4. 17 mm lower pole left renal cyst. 5. Small hiatal hernia. Electronically signed by: Homero Stark MD 01/21/2018 6:26 PM EDT
[2018-01-22] MEDS: Isosorbide Mononitrate 60 MG ER 24HR Tablet (Imdur) PO SCH ×2 (06:15→08:57)
[2018-01-22 07:21] VITALS: O2SAT 100
[2018-01-22 08:13] VITALS: BP 140/92; RESP 17; TEMP 98.5
--- NOTE | 2018-01-22 08:26 | P.DCO ---
- Diagnosis (4) Chest pain - Physical Therapy Order: Evaluate and treat - Certification I have seen patient Jose G Gil on 01/22/18. My clinical findings support the need for the requested home health care services because: Patient has SOB, Deconditioned with increased weakness I certify that my clinical findings support that this patient is homebound because: Post-op weakness (4) Chest pain Qualifiers: Chest pain type: chest pain due to myocardial ischemia Ischemic chest pain type: stable angina pectoris Qualified Code(s): I20.8 - Other forms of angina pectoris
--- NOTE | 2018-01-22 08:27 | P.DS ---
Date of admission: 01/20/18 13:57 Primary care physician: Noé Shah Brief History from admission: This is a 53-year-old male with PMH of HTN, Hyperlipidemia, CAD s/p CABG, h/o Pacemaker, CHF (Echo 10/27/17 W/ EF 25-30%), Bipolar Disorder and Tobacco Abuse who presented to the ER for c/o chest pain started earlier this afternoon. States he was on his sailboat fishing for catfish when he had sudden onset left- sided chest pain. Pain is severe, 10/10, radiating to left shoulder. S/p NTG by EMS w/ minimal improvement. Previous admit 10/25/17 for STEMI, s/p Cardiac Cath by Dr. Arevalo 10/25/17 w/ no easily approachable culprit lesion, EF 25-30% at that time, pt declined both Defibrillator and LifeVest. States he follows w/ Dr. Ogden as outpatient, last seen 1mo ago, pt now agreeable to Defibrillator placement. On arrival, BP 150/66, HR 100, O2 sat 98% on RA, Afebrile. CBC unremarkable. INR 1.0. Creatinine 1.32, previously 1.29 on 10/28/17. Alcohol 178. CXR w/ mild right lung base atelectasis. DS: Diagnosis - Discharge Diagnosis (1) Elevated troponin Status: Acute (2) Hx of CABG Status: Acute (3) Myocardial infarction Status: Acute (4) Chest pain Status: Acute (5) CHF (congestive heart failure) Status: Acute (6) Tobacco abuse Status: Acute (7) Bipolar disorder Status: Acute (8) NSTEMI (non-ST elevated myocardial infarction) Status: Acute DS: Medications - Discharge Medications Prescriptions: gabapentin 100 mg PO TID PRN #36 cap PRN Reason: pain 1-5/tingling R LE isosorbide mononitrate 60 mg PO DAILY@0700 #30 tab DS: Summary Hospital Course: This is a 53-year-old male with history of coronary artery disease status post cardiac catheterization 2 months ago presented with chest pain. Troponin 0 0.073 , Initial EKG, no ischemic changes. Cardiology consulted, status post cardiac catheterization, 95% stenosis right PDA, moderate to severe 2 vessel disease, ejection fraction 35-40%, status post PCI of the right PDA. Cardiology recommends to continue Plavix, aspirin 162 mg daily, smoking cessation. Continue statin, losartan, Imdur, Ranexa. However after cardiac catheterization, the patient complaining of right lower extremity weakness, numbness and paresthesia. Pulses were good, neurology was consulted. A CTA of the right lower extremity was done. There is no note of hematoma, stenosis or occlusion of the vessels. Patient's right lower extremity weakness and numbness also improved. He was cleared by neurology for discharge and cardiology. He will be discharged on gabapentin as needed for pain. He will also continue the cardiac medications mentioned above. Patient will be going home with home health care physical therapy. - Time Spent with Patient Total time spent providing and/or coordinating discharge services: Greater than 30 minutes - Quality: VTE Deep Vein Thrombosis/Pulmonary Embolism Present on Admission: No Exam Vital signs: Vital Signs 01/21/18 09:00 01/21/18 10:00 01/21/18 11:00 Temperature 98.5 F Pulse Rate 98 H 94 H 94 H Respiratory Rate 16 Blood Pressure 123/75 Pulse Oximetry 96 01/21/18 12:00 01/21/18 13:00 01/21/18 14:00 Temperature Pulse Rate 87 89 89 Respiratory Rate Blood Pressure Pulse Oximetry 01/21/18 15:00 01/21/18 16:00 01/21/18 17:00 Temperature 98.1 F Pulse Rate 83 87 98 H Respiratory Rate 16 Blood Pressure 115/70 Pulse Oximetry 96 01/21/18 17:51 01/21/18 19:00 01/21/18 20:00 Temperature 98.6 F Pulse Rate 93 H 80 78 Respiratory Rate 16 Blood Pressure 121/75 Pulse Oximetry 97 01/21/18 21:00 01/21/18 22:00 01/21/18 23:00 Temperature 97.7 F Pulse Rate 80 66 76 Respiratory Rate 16 Blood Pressure 125/81 Pulse Oximetry 99 01/22/18 00:00 01/22/18 01:00 01/22/18 02:00 Temperature Pulse Rate 74 70 65 Respiratory Rate Blood Pressure Pulse Oximetry 01/22/18 03:00 01/22/18 04:00 01/22/18 05:00 Temperature 98.3 F Pulse Rate 68 64 64 Respiratory Rate 16 Blood Pressure 138/93 H Pulse Oximetry 100 01/22/18 06:00 01/22/18 07:00 Temperature 98.5 F Pulse Rate 64 75 Respiratory Rate 17 Blood Pressure 140/92 H Pulse Oximetry Intake & Output 01/21/18 01/22/18 01/22/18 18:59 06:59 18:59 Intake Total 960 / 960 240 / 240 Output Total 1275 / 1275 350 / 350 Balance -315 / -315 -110 / -110 Weight 95 kg Intake: Oral 960 / 960 240 / 240 Output: Urine 1275 / 1275 350 / 350 Narrative: Not in distress, calm Pupils equal reactive to light, nonicteric Regular rate and rhythm, no murmurs Clear breath sounds Abdomen soft, nontender, obese. Right femoral pulses 2+, mildly tender, no obvious hematoma, RLE warm to touch, 2+ DP pulses No edema Alert awake and oriented 3, (+) RLE weakness, 4/5 compared to the left. Touch and pain sensation on the RLE extremely diminished, ~20% compared to 100% on the left. Negative straight leg raising on the right. No lumbar tenderness. No hip tenderness on hip flexion. No cranial nerve deficits, no facial asymmetry, speech is fluent. Bilateral upper extremities 5/5 bilaterally. Left lower extremities 5/5. Results Procedures completed during hospitalization: 01/20 CONCLUSION: 1. [id number] myocardial infarction, [place] Cardiovascular Society class IV angina culprit 95% mid right patent ductus arteriosus lesion as detailed above. 2. Otherwise, [id number] 3-vessel coronary artery disease in a right dominant system as detailed above. 3. Cardiomyopathy, ejection fraction 35% to 40%. The posterior wall, mid inferior ramires more severely hypokinetic and disproportionately hypokinetic than the anterior wall. 4. Successful percutaneous coronary intervention bare metal stent of the mid right PDA for 95% to 0% with JOSE DE JESUS-3 flow. 5. Patient is completely chest pain free at the end of the procedure. Note, Angio-Seal was placed at the end of the procedure. 6. We will start Aggrastat drip per protocol, reload with Plavix 600 mg daily. Continue Plavix 75 mg daily, aspirin 162 mg daily. I strongly advised the patient to stop smoking after the procedure and multiple times prior to this. We will otherwise continue to treat lipids per NCBI guidelines and treat with beta blockers and CHERY inhibitors hemodynamically and clinically as tolerated. - Impressions ITS Impressions Chest X-Ray 01/18/18 19:24 CONCLUSION: Mild right lung base atelectasis. Aorta w/Runoff CTA 01/21/18 00:00 CONCLUSION: 1. No significant stenosis or occlusion of the visualized arterial vascular system. 2. Uncomplicated colonic diverticulosis. 3. Mildly prominent prostate. 4. 17 mm lower pole left renal cyst. 5. Small hiatal hernia. Discharge Plan - Discharge Disposition Patient Disposition: W/Home Health Service - Discharge Condition Condition: Stable - Discharge Order Discharge Orders: Discharge Order (Routine); Ordered 01/22/18 Ordered By: Amena Mata - Discharge Details Anticipated Discharge Date: 01/22/18 - Physicians Team Primary Care Provider: Noé Shah Attending Provider: Amena Mata Other Providers: Enrico Griffin MD ; Gely Kenyon MD
[2018-01-22] MEDS: buPROPion 150 MG XL 24 HR Tablet PO SCH (08:56)
[2018-01-22] MEDS: Ranolazine 500 MG 12HR ER Tablet PO SCH (08:57)
[2018-01-22 09:56] VITALS: PULSE 72
[2018-01-22] MEDS: Senna/Docusate Sodium 8.6/50 MG Tablet PO SCH (11:15)
--- NOTE | 2018-01-22 13:16 | ECG ---
Date Performed: 01/21/2018 Time Performed: 16:53:10 PTAGE: 53 years EKG: Sinus rhythm with 1st degree A-V block. Right bundle branch block Anterolateral infarct - age undetermined Low QR S voltages in precordial leads Abnormal ECG PREVIOUS TRACING : 01/18/2018 19.28 DOCTOR: Devaughn Arevalo Interpretating Date/Time 01/22/2018 13:11:50
== END 2018-01-22 10:28 | disposition home health service (06) ==
LOC: NEDA 18:48 → NEPE 18:48 → NEDA 23:50 → NEPFCDU 23:53 → HCIS 01-20 11:34 → HCPC 01-20 12:59
PROVIDERS: ADMIT Hospitalist; ATTEND Hospitalist